=== PATIENT | female | born 1990 | race African-American/Black ===

== ENCOUNTER 2022-02-09 07:54 | Emergency (ER) | payer SELFPAY ==
--- OUTSIDE RECORDS SUMMARY | 2022-02-09 08:01 | XMS REPORT | Continuity of Care Document ---
:1990 Author Organization [facility] t Address [address] [place] [address] Care Team Providers Name Role Phone NONE, NONE Primary Care Physician Unavailable DR STAN AMEZQUITA Attending Clinician Unavailable DR KATRINA DUGAN Attending Clinician Unavailable KAREN, DR LAMBERT Attending Clinician Unavailable DR JAVI YEN Attending Clinician Unavailable ADOLFO, DR SINCLAIR Attending Clinician Unavailable CARL GTZ Attending Clinician Unavailable SEBASTIAN, DR MARY Ham Attending Clinician Unavailable DR ARMAND DUGAN Attending Clinician Unavailable DR KAREN LUNDBERG Attending Clinician Unavailable DR STAN AMEZQUITA Admitting Clinician Unavailable DR KATRINA DUGAN Admitting Clinician Unavailable DR PETRA JONES Admitting Clinician Unavailable DR JAVI YEN Admitting Clinician Unavailable DR DOTTIE MATA Admitting Clinician Unavailable DR MARY CORTES Admitting Clinician Unavailable DR ARMAND DUGAN Admitting Clinician Unavailable DR KAREN LUNDBERG Admitting Clinician Unavailable Payers Payer Name Policy Type Policy Number Effective Date Expiration Date S ource 1000 [id number] 2021 00:00:00 Problems This patient has no known problems. Allergies, Adverse Reactions, Alerts Allergy Allergy Status Severity Reaction(s) Onset Inactive Treating Comm ents Source Name Type Date Date Clinician No Known DA Active Unknown [facility] 07-10 Medical Allergie 00:00: Center s 00 Medications This patient has no known medications. Vital Signs Vital Name Observation Time Observation Value Comments Source Height 2021-06-10 06:12:00 167.64 CM Weight 2021-06-10 06:12:00 72.57 KG Height 2021-01-24 05:20:00 167.64 CM Weight 2021-01-24 05:20:00 81.64 KG Height 2020-11-09 07:16:00 167.64 CM Weight 2020-11-09 07:16:00 78.47 KG Height 2020-08-25 08:15:00 162.56 CM Weight 2020-08-25 08:15:00 81.64 KG Height 2020-08-20 14:08:00 167.64 CM Weight 2020-08-20 14:08:00 85.13 KG Height 2020-07-07 08:30:00 167.64 CM Height 2020-06-03 07:14:00 167.64 CM Weight 2020-06-03 07:14:00 81.64 KG Height 2020-05-28 15:49:00 165.1 CM Weight 2020-05-28 15:49:00 81.64 KG Height 2020-05-25 08:47:00 165.1 CM Weight 2020-05-25 08:47:00 81.64 KG Height 2020-04-07 08:38:00 167.64 CM Weight 2020-04-07 08:38:00 81.64 KG Height 2019-09-28 16:46:00 167.64 CM Weight 2019-09-28 16:46:00 81.64 KG Height 2019-08-16 16:07:00 167.64 CM Weight 2019-08-16 16:07:00 70.3 KG Height 2019-06-10 07:26:00 167.64 CM Weight 2019-06-10 07:26:00 81.64 KG Procedures This patient has no known procedures. Encounters Start End Encounter Admission Attending Care Care Encounter Source Date/Time Date/Time Type Type Clinicians Facility Department ID 2021-10-12 2021-10-12 Emergency Yasmin AMEZQUITA [facility] [id number] [facility] 07:53:00 13:55:00 [facility] 2021-06-10 2021-06-10 Emergency E RITCHIE, [facility] [id number] [facility] 06:06:00 09:15:00 [facility]RINA [facility] 2021-01-24 2021-01-24 Emergency E PETRA JONES [facility] [id number] [facility] 05:09:00 08:39:00 [facility] 2020-11-09 2020-11-09 Emergency E YEN, [facility] [id number] [facility] 07:14:00 09:09:00 [facility] 2020-09-23 2020-09-23 Outpatient FBCOVID FBCOVID [id number] [facility] 00:00:00 00:00:00 [id number] 2020-08-25 Emergency E ALIRIO, [facility] [id number] [facility] 08:04:00 10:50:00 STAN [facility] 2020-08-20 2020-08-20 Emergency E ALIRIO, [facility] [id number] [facility] 13:59:00 17:37:00 [facility] 2020-06-03 2020-06-03 Emergency E CARL GTZ [facility] [id number] [facility] 10:02:00 12:50:00 2020-06-03 2020-06-03 Emergency E RITCHIE [facility] [id number] [facility] 07:14:00 09:15:00 KATRINA [facility] 2020-04-07 2020-04-07 Emergency E DUGAN, ARMAND [facility] [id number] [facility] 08:32:00 11:02:00 [facility] 2020-02-05 2020-02-05 Emergency E RITCHIE [facility] [id number] [facility] 06:58:00 09:16:00 KATRINA [facility] 2019-09-28 2019-09-28 Emergency E ALIRIO [facility] [id number] [facility] 16:29:00 19:51:00 [facility] 2019-08-16 2019-08-16 Emergency E RITCHIE [facility] [id number] [facility] 15:20:00 20:40:00 KATRINA [facility] 2019-06-10 2019-06-10 Emergency E RITCHIE [facility] [id number] [facility] 07:26:00 09:15:00 Replaced by [facility] 2019-01-15 2019-01-15 Emergency E TAMIKA [facility] [id number] [facility] 06:54:00 08:56:00 KAREN [facility] 2018-03-08 2018-03-08 Emergency E ARMAND DUGAN [facility] [id number] [facility] 08:04:00 09:15:00 [facility] 2017-08-09 2017-08-09 Emergency E RITCHIE [facility] [id number] [facility] 05:35:00 07:30:00 Replaced by [facility] 2017-01-27 2017-01-27 Emergency E ALIRIO [facility] [id number] [facility] 15:02:00 16:36:00 [facility] Results Test Description Test Time Test Comments Results Result [facility] e Comments CT ABDOMEN AND 2021-10-26 PELVIS W/O 10:13:53 [facility]AST [facility] : 1990 Sex: F EX AM: CT ABDOMEN PELVIS WITHOUT IV CONTRASTINDICATION: abd pain, back painTECHNIQUE: CT of the abdomen and pelvis was performed with no intravenous contrast. All CT scans are performed using radiation dose reduction technique. Technical factors are evaluated and adjusted to insure appropriate moderation of exposure. Automated dose management technology is applied to adjust the radiation dose to minimize exposure while achieving a diagnostic quality image.FINDINGS:Statem ents: Lack of intravenous contrast diminishes sensitivity for evaluation of abdominopelvic organs and vasculature. Visualized chest: No significant abnormality seen.Hepatobiliary: Liver appears unremarkable. Gallbladder appears unremarkable. No intrahepatic or extrahepatic biliary dilatation is seen. Pancreas: Appears unremarkable. Spleen: Appears unremarkable. Adrenal glands: Appear unremarkable.Kidneys: Appear unremarkable. No hydronephrosis or nephrolithiasis seen.Gastrointestinal : Appendix: Is seen on series 2, image 48. It appears unremarkable.Bowel: No bowel obstruction or ileus seen.Vascular: Aorta does not appear aneurysmal.Lymph nodes: No enlarged lymph nodes seen.Peritoneum: No ascites or free air is seen.Genitourinary: Left ovarian density identified measuring 5.5 x 3.9 cm in size, incompletely characterized. Urinary bladder is mildly distended.Soft tissues:No significant abnormality seen.Bones:No acute or destructive osseous process seen.IMPRESSION:No free air, bowel obstruction, ileus or fluid collection seen. Left ovary and density measuring 5.5-3.9 cm in size, incompletely characterized. Differential considerations would include complex appearing ovarian cyst, cluster of cysts, or neoplasm. Recommend pelvic ultrasound for further evaluation.Please refer to the findings section for additional details. Electronically signed by: Paul Murphy MD 10/12/2021 12:19 PM CDT CBC WITH MORPHOLOGY 2021-10-21 13:46:00 Test Item Value Reference Range Interpretation Comme nts WBC (test code = WBC) 4.4 10\S\3/uL 4.5-11.0 L RBC (test code = RBC) 4.56 10\S\6/uL 4.30-5.70 HGB (test code = HBG) 8.6 g/dL 12.0-15.5 L HCT (test code = HCT) 30.8 % 35.0-44.0 L MCV (test code = MCV) 67.5 fL 81.0-99.0 L MCH (test code = MCH) 18.9 pg 27.0-31.0 L MCHC (test code = MCHC) 27.9 g/dL 32.0-36.0 L RDW (test code = RDW) 19.9 % 11.5-14.5 H PLT (test code = PLT) 218 10\S\3/uL 130-400 MPV (test code = MPV) 9.9 fL 9.4-12.4 NEUTROP # (test code = NE#) 2.4 10\S\3/uL 1.6-8.0 LYMPH # (test code = LY#) 1.4 10\S\3/uL 1.1-3.5 MONOCYTE # (test code = MO#) 0.6 10\S\3/uL 0.0-1.1 EOSINOPH # (test code = EO#) 0.1 10\S\3/uL 0.0-0.7 BASOPHIL # (test code = BA#) 0.0 10\S\3/uL 0.0-0.3 IG # (test code = IG#) 0.01 10\S\3/uL 0.00-0.06 NRBC # (test code = NRBC#) 0.00 10\S\3/uL 0.00-0.01 NEUTROPH % (test code = NE%) 53.9 % 35.0-73.0 LYMPH % (test code = LY%) 31.0 % 20.0-55.0 MONO % (test code = MO%) 13.0 % 2.5-10.0 H EOSINOPH % (test code = EO%) 1.4 % 0.0-5.0 BASOPHIL % (test code = BA%) 0.5 % 0.0-2.0 IG % (test code = IG%) 0.2 % 0.0-0.8 NRBC% (test code = NRBC%) 0.0 % 0.0-0.2 PLT EST (test code = PLTEST) ADEQUATE ADEQUATE PLT MORPH (test code = PLTMOR) NORMAL (1.5-3 um) NORMAL ANISO (test code = ANISO) 1+ NONE A HYPOCHROM (test code = HYPOC) 2+ NONE A TARGET (test code = TARG) 1+ NONE A OVALOCYTES (test code = OVA) 1+ NONE A COMPREHENSIVE METABOLIC [id number] 13:25:00 Test Item Value Reference Range Interpretation Comments GLUCOSE (test code 78 mg/dL 75-100 = 06D) SODIUM (test code 144 mmol/L 136-145 = 01A) POTASSIUM (test 4.0 mmol/L 3.6-5.1 code = 01B) CHLORIDE (test 113 mmol/L 98-107 H code = 04A) CO2 (test code = 22 mmol/L 20-31 02A) ANION GAP (test 13.0 mmol/L code = ANG) BUN (test code = 9 mg/dL 9-23 05D) CREATININE (test 0.6 mg/dL 0.6-1.0 code = 03E) GFR (test code = 121 See_Comment [Automated GFR) mL/min/1.73m\S\2 message] Th e system which generated this result transmit reuben reference range : >=90. The reference range was not used to interpret this result as normal/abnormal . EGFR (test code = eGFR BY EGFR) CKD-EPI CALCULATION IS NOT RECOMMENDED FOR PATIENTS UNDER 18 YEARS OF AGE. BUN/CREA (test 15 12-20 code = BCR) CALCIUM (test code 8.5 mg/dL 8.3-10.6 = 09D) BILI TOTAL (test 0.3 mg/dL 0.2-1.0 code = 11A) PROTEIN (test code 6.8 g/dL 5.7-8.2 = 07D) ALBUMIN (test code 4.3 g/dL 3.2-4.8 = 08D) GLOBULIN (test 2.5 g/dL 1.5-3.8 code = GLB) ALB/GLOB (test 1.7 1.0-2.6 code = AGRR) ALK PHOS (test 47 IU/L 46-116 code = 35A) AST (test code = 24 IU/L See_Comment [Automated 30A) message] The system which generated this result transmit reuben reference range : <=33. The reference range was not used to interpret this result as normal/abnormal . ALT (test code = 11 IU/L 10-49 31A) [id number] 13:17:00 Test Item Value Reference Range Interpretation Comments COLOR (test code = COLU) YELLOW YELLOW CLARITY (test code = CLA) CLEAR CLEAR GLUCOSE UR (test code = UA GLUCOSE) NEGATIVE NEGATIVE BILI UR (test code = BILE) NEGATIVE NEGATIVE KETONES UR (test code = MAXINE) NEGATIVE NEGATIVE SP GRAVITY (test code = SPGR) 1.022 1.005-1.030 PH UR (test code = PH) 7.5 4.5-8.0 PROTEIN UR (test code = PU) NEGATIVE NEGATIVE UROBIL UR (test code = UROQ) 0.2 EU/dL 0.2-1.0 NITRITE UR (test code = NITRITE) NEGATIVE NEGATIVE BLOOD UR (test code = UA BLOOD) NEGATIVE NEGATIVE LEUK ES UR (test code = LEUK) NEGATIVE NEGATIVE URINE [id number] 13:14:00 Test Item Value Reference Range Interpretation Comments PREG UR (test code = PGU) NEGATIVE NEGATIVE U/S NON [id number] 07:48:49 [facility] 1990 Sex: FPELVIS SONOGRA M.TRANSVAGINAL PELVIC SONOGRAMLOCATION CODE: [id number]: Pelvic pain LMP: 06/01/2021. TECHNIQUE: Static sonographic images are provided for interpretation. Transabdominal and transvaginal exams.FINDINGS:The uterus measures 10.3 x 4.3 x 6.4 cm with a 0.7 cm endometrial stripe. A tiny calcified uterine fibroid is noted within the uterine body, adjacent to the endometrium measuring 7 x 7 x 6 mm.No evidence of free pelvic fluid.The right ovary measures 3.6 x 2.4 x 1.5 cm and the left ovary measures 5.1 x2.4 x 3 cm. Follicular cysts are evident at the left ovary. There are dominant simple cyst measures 2 cm. Both ovaries demonstrate normal echogenicity and blood flow. Normal arterial flow is demonstrated to both ovaries.IMPRESSION:1. Tiny subcentimeter calcified uterine fibroid noted.2. Follicular cysts at the left ovary including simple 2 cm dominant cyst. No evidence of torsion.3. No free pelvic fluid.Electronically signed by: Selena Marion MD 06/10/2021 7:48 AM CDT /S [id number] 07:48:49 [facility] : 1990 Sex: FPELVIS SONOGRA M.TRANSVAGINAL PELVIC SONOGRAMLOCATION CODE: [id number]: Pelvic pain LMP: 06/01/2021. TECHNIQUE: Static sonographic images are provided for interpretation. Transabdominal and transvaginal exams.FINDINGS:The uterus measures 10.3 x 4.3 x 6.4 cm with a 0.7 cm endometrial stripe. A tiny calcified uterine fibroid is noted within the uterine body, adjacent to the endometrium measuring 7 x 7 x 6 mm.No evidence of free pelvic fluid.The right ovary measures 3.6 x 2.4 x 1.5 cm and the left ovary measures 5.1 x2.4 x 3 cm. Follicular cysts are evident at the left ovary. There are dominant simple cyst measures 2 cm. Both ovaries demonstrate normal echogenicity and blood flow. Normal arterial flow is demonstrated to both ovaries.IMPRESSION:1. Tiny subcentimeter calcified uterine fibroid noted.2. Follicular cysts at the left ovary including simple 2 cm dominant cyst. No evidence of torsion.3. No free pelvic fluid.Electronically signed by: Selena Marion MD 06/10/2021 7:48 AM CDT WITH [id number] 07:26:00 Test Item Value Reference Range Interpretation Comments WBC (test code = WBC) 5.8 10\S\3/uL 4.5-11.0 RBC (test code = RBC) 4.80 10\S\6/uL 4.30-5.70 HGB (test code = HBG) 9.5 g/dL 12.0-15.5 L HCT (test code = HCT) 32.7 % 35.0-44.0 L MCV (test code = MCV) 68.1 fL 81.0-99.0 L MCH (test code = MCH) 19.8 pg 27.0-31.0 L MCHC (test code = MCHC) 29.1 g/dL 32.0-36.0 L RDW (test code = RDW) 20.7 % 11.5-14.5 H PLT (test code = PLT) 303 10\S\3/uL 130-400 MPV (test code = MPV) 9.9 fL 9.4-12.4 NEUTROP # (test code = NE#) 3.0 10\S\3/uL 1.6-8.0 LYMPH # (test code = LY#) 1.9 10\S\3/uL 1.1-3.5 MONOCYTE # (test code = 0.8 10\S\3/uL 0.0-1.1 MO#) EOSINOPH # (test code = 0.1 10\S\3/uL 0.0-0.7 EO#) BASOPHIL # (test code = 0.0 10\S\3/uL 0.0-0.3 BA#) IG # (test code = IG#) 0.01 10\S\3/uL 0.00-0.06 NRBC # (test code = NRBC#) 0.00 10\S\3/uL 0.00-0.01 NEUTROPH % (test code = 52.0 % 35.0-73.0 NE%) LYMPH % (test code = LY%) 32.2 % 20.0-55.0 MONO % (test code = MO%) 13.9 % 2.5-10.0 H EOSINOPH % (test code = 1.0 % 0.0-5.0 EO%) BASOPHIL % (test code = 0.7 % 0.0-2.0 BA%) IG % (test code = IG%) 0.2 % 0.0-0.8 NRBC% (test code = NRBC%) 0.0 % 0.0-0.2 PLT EST (test code = ADEQUATE ADEQUATE PLTEST) PLT MORPH (test code = NORMAL (1.5-3 um) NORMAL PLTMOR) ANISO (test code = ANISO) 1+ NONE A HYPOCHROM (test code = 2+ NONE A HYPOC) MICROCYTIC (test code = 2+ NONE A MICRO) TARGET (test code = TARG) 2+ NONE A URINALYSIS WITH [id number] 07:14:00 Test Item Value Reference Range Interpretation Comments COLOR (test code = COLU) YELLOW YELLOW CLARITY (test code = CLA) CLEAR CLEAR GLUCOSE UR (test code = UA GLUCOSE) NEGATIVE NEGATIVE BILI UR (test code = BILE) NEGATIVE NEGATIVE KETONES UR (test code = MAXINE) NEGATIVE NEGATIVE SP GRAVITY (test code = SPGR) 1.015 1.005-1.030 PH UR (test code = PH) 7.0 4.5-8.0 PROTEIN UR (test code = PU) TRACE NEGATIVE A UROBIL UR (test code = UROQ) 1.0 EU/dL 0.2-1.0 NITRITE UR (test code = NITRITE) NEGATIVE NEGATIVE BLOOD UR (test code = UA BLOOD) 3+ NEGATIVE A LEUK ES UR (test code = LEUK) 1+ NEGATIVE A WBC UR (test code = UWBC) 4 /HPF 0-5 RBC UR (test code = URBC) 8 /HPF 0-2 H EPITH UR (test code = UEPC) FEW /LPF FEW BACTERIA UR (test code = UBACT) FEW /HPF NONE A CAST UR (test code = CAST) /LPF NONE CRYSTAL UR (test code = CRYU) / LPF NONE MUCUS UR (test code = MUC) / HPF NONE AMORPH UR (test code = SUNIL) / HPF NONE TRICH UR (test code = UTRICH) /HPF NONE YEAST UR (test code = UY) /HPF NONE SPERM UR (test code = USPERM) /HPF NONE BASIC METABOLIC [id number] 07:12:00 Test Item Value Reference Range Interpretation Comments GLUCOSE (test code 83 mg/dL 75-100 = 06D) SODIUM (test code 139 mmol/L 136-145 = 01A) POTASSIUM (test 3.7 mmol/L 3.6-5.1 code = 01B) CHLORIDE (test 107 mmol/L 98-107 code = 04A) CO2 (test code = 27 mmol/L 20-31 02A) ANION GAP (test 8.7 mmol/L code = ANG) BUN (test code = 7 mg/dL 9-23 L 05D) CREATININE (test 0.7 mg/dL 0.6-1.0 code = 03E) GFR (test code = 114 See_Comment [Automated GFR) mL/min/1.73m\S\2 message] Th e system which generated this result transmit reuben reference range : >=90. The reference range was not used to interpret this result as normal/abnormal . GFR 133 See_Comment [Automated [place] (test mL/min/1.73m\S\2 message] The code = GFRAA) system which generated this result transmit reuben reference range : >=90. The reference range was not used to interpret this result as normal/abnormal . EGFR (test code = eGFR BY EGFR) CKD-EPI CALCULATION IS NOT RECOMMENDED FOR PATIENTS UNDER 18 YEARS OF AGE. BUN/CREA (test 10 12-20 L code = BCR) CALCIUM (test code 8.8 mg/dL 8.3-10.6 = 09D) URINE [id number] 06:59:00 Test Item Value Reference Range Interpretation Comments PREG UR (test code = PGU) NEGATIVE NEGATIVE CT ABDOMEN AND PELVIS WITH [id number] 07:11:56 [facility] : 1990 Sex: FEXAMINATION:CT ABDOMEN AND PELVIS WITH CONTRASTCLINICAL INDICATION:Female, 30 years old with Right lower quadrant painTECHNIQUE: Thin section axial post-contrast contiguous images were obtained through the abdomen and pelvis followed by coronal and sagittal multiplanar reformations.One or more of the following dosereduction techniques were used: Automated exposure control, adjustment of the mA and/or kV accordingto patient size, and/or iterative reconstruction. COMPARISON: CT 08/25/2020 reported 3 cm left adnexal cystFINDINGS: Heart size normal. Lung bases clear. Liver, spleen, pancreas and adrenal glands appear unremarkable. Kidneys both function and are normal in size and position with no hydronephrosis, ston es, or apparent soft tissue mass. The appendix appears normal. No dilated bowel loops. No free air or fluid is seen in the abdomen. No periaortic adenopathy or aneurysm. Anteverted uterus. 2.5 cm waterdensity right lower quadrant adnexal cyst. 2.9 cm cyst is identified on the left, appearing essentially unchanged. No pelvic or inguinal adenopathy is seen. The bones appear unremarkable.IMPRESSION:1. New right adnexal cyst.2. Left adnexal cyst appears essentially unchanged.3. No urolithiasis.4. Normal appendix.Electronically signed by: Be Long MD 01/24/2021 7:11 AM [employer] WITH [id number] 06:44:00 Test Item Value Reference Range Interpretation Comments WBC (test code = WBC) 4.1 10\S\3/uL 4.5-11.0 L RBC (test code = RBC) 4.95 10\S\6/uL 4.30-5.70 HGB (test code = HBG) 9.5 g/dL 12.0-15.5 L HCT (test code = HCT) 33.2 % 35.0-44.0 L MCV (test code = MCV) 67.1 fL 81.0-99.0 L MCH (test code = MCH) 19.2 pg 27.0-31.0 L MCHC (test code = MCHC) 28.6 g/dL 32.0-36.0 L RDW (test code = RDW) 20.3 % 11.5-14.5 H PLT (test code = PLT) 273 10\S\3/uL 130-400 MPV (test code = MPV) 9.5 fL 9.4-12.4 NEUTROP # (test code = NE#) 1.8 10\S\3/uL 1.6-8.0 LYMPH # (test code = LY#) 1.6 10\S\3/uL 1.1-3.5 MONOCYTE # (test code = 0.6 10\S\3/uL 0.0-1.1 MO#) EOSINOPH # (test code = 0.1 10\S\3/uL 0.0-0.7 EO#) BASOPHIL # (test code = 0.0 10\S\3/uL 0.0-0.3 BA#) IG # (test code = IG#) 0.01 10\S\3/uL 0.00-0.06 NRBC # (test code = NRBC#) 0.00 10\S\3/uL 0.00-0.01 NEUTROPH % (test code = 45.1 % 35.0-73.0 NE%) LYMPH % (test code = LY%) 38.0 % 20.0-55.0 MONO % (test code = MO%) 13.5 % 2.5-10.0 H EOSINOPH % (test code = 2.2 % 0.0-5.0 EO%) BASOPHIL % (test code = 1.0 % 0.0-2.0 BA%) IG % (test code = IG%) 0.2 % 0.0-0.8 NRBC% (test code = NRBC%) 0.0 % 0.0-0.2 PLT EST (test code = ADEQUATE ADEQUATE PLTEST) PLT MORPH (test code = NORMAL (1.5-3 um) NORMAL PLTMOR) ANISO (test code = ANISO) 2+ NONE A POIK (test code = POIK) 2+ NONE A HYPOCHROM (test code = 2+ NONE A HYPOC) MICROCYTIC (test code = 2+ NONE A MICRO) POLYCHROM (test code = 1+ NONE A POLY) TARGET (test code = TARG) 1+ NONE A OVALOCYTES (test code = 1+ NONE A OVA) TEAR DROP (test code = TD) 1+ NONE A COMPREHENSIVE METABOLIC [id number] 06:16:00 Test Item Value Reference Range Interpretation Comments GLUCOSE (test code 74 mg/dL 75-100 L = 06D) SODIUM (test code 144 mmol/L 136-145 = 01A) POTASSIUM (test 3.8 mmol/L 3.6-5.1 code = 01B) CHLORIDE (test 112 mmol/L 98-107 H code = 04A) CO2 (test code = 23 mmol/L 20-31 02A) ANION GAP (test 12.8 mmol/L code = ANG) BUN (test code = 8 mg/dL 9-23 L 05D) CREATININE (test 0.7 mg/dL 0.6-1.0 code = 03E) GFR (test code = 114 See_Comment [Automated GFR) mL/min/1.73m\S\2 message] Th e system which generated this result transmit reuben reference range : >=90. The reference range was not used to interpret this result as normal/abnormal . GFR 133 See_Comment [Automated [place] (test mL/min/1.73m\S\2 message] The code = GFRAA) system which generated this result transmit reuben reference range : >=90. The reference range was not used to interpret this result as normal/abnormal . EGFR (test code = eGFR BY EGFR) CKD-EPI CALCULATION IS NOT RECOMMENDED FOR PATIENTS UNDER 18 YEARS OF AGE. BUN/CREA (test 11 12-20 L code = BCR) CALCIUM (test code 9.0 mg/dL 8.3-10.6 = 09D) BILI TOTAL (test 0.3 mg/dL 0.2-1.0 code = 11A) PROTEIN (test code 7.1 g/dL 5.7-8.2 = 07D) ALBUMIN (test code 4.5 g/dL 3.2-4.8 = 08D) GLOBULIN (test 2.6 g/dL 1.5-3.8 code = GLB) ALB/GLOB (test 1.7 1.0-2.6 code = AGRR) ALK PHOS (test 62 IU/L 46-116 code = 35A) AST (test code = 25 IU/L See_Comment [Automated 30A) message] The system which generated this result transmit reuben reference range : <=33. The reference range was not used to interpret this result as normal/abnormal . ALT (test code = 12 IU/L 10-49 31A) SERUM [id number] 06:14:00 Test Item Value Reference Range Interpretation Comments PREG SRM (test code = PGS) NEGATIVE NEGATIVE URINALYSIS WITH [id number] 05:58:00 Test Item Value Reference Range Interpretation Comments COLOR (test code = COLU) YELLOW YELLOW CLARITY (test code = CLA) CLOUDY CLEAR A GLUCOSE UR (test code = UA NEGATIVE NEGATIVE GLUCOSE) BILI UR (test code = BILE) NEGATIVE NEGATIVE KETONES UR (test code = MAXINE) 1+ NEGATIVE A SP GRAVITY (test code = SPGR) 1.027 1.005-1.030 PH UR (test code = PH) 5.5 4.5-8.0 PROTEIN UR (test code = PU) 1+ NEGATIVE A UROBIL UR (test code = UROQ) 1.0 EU/dL 0.2-1.0 NITRITE UR (test code = NEGATIVE NEGATIVE NITRITE) BLOOD UR (test code = UA BLOOD) NEGATIVE NEGATIVE LEUK ES UR (test code = LEUK) 1+ NEGATIVE A WBC UR (test code = UWBC) 6 /HPF 0-5 H RBC UR (test code = URBC) 2 /HPF 0-2 EPITH UR (test code = UEPC) MODERATE /LPF FEW A BACTERIA UR (test code = UBACT) MODERATE /HPF NONE A CAST UR (test code = CAST) /LPF NONE CRYSTAL UR (test code = CRYU) / LPF NONE MUCUS UR (test code = MUC) / HPF NONE AMORPH UR (test code = SUNIL) FEW / HPF NONE A TRICH UR (test code = UTRICH) /HPF NONE YEAST UR (test code = UY) /HPF NONE SPERM UR (test code = USPERM) /HPF NONE URINALYSIS WITH [id number] 08:29:00 Test Item Value Reference Range Interpretation Comments COLOR (test code = COLU) DK YELLOW YELLOW A CLARITY (test code = CLA) CLEAR CLEAR GLUCOSE UR (test code = UA NEGATIVE NEGATIVE GLUCOSE) BILI UR (test code = BILE) NEGATIVE NEGATIVE KETONES UR (test code = MAXINE) NEGATIVE NEGATIVE SP GRAVITY (test code = SPGR) 1.028 1.005-1.030 PH UR (test code = PH) 6.0 4.5-8.0 PROTEIN UR (test code = PU) NEGATIVE NEGATIVE UROBIL UR (test code = UROQ) 1.0 EU/dL 0.2-1.0 NITRITE UR (test code = NEGATIVE NEGATIVE NITRITE) BLOOD UR (test code = UA NEGATIVE NEGATIVE BLOOD) LEUK ES UR (test code = LEUK) 1+ NEGATIVE A WBC UR (test code = UWBC) 4 /HPF 0-5 RBC UR (test code = URBC) 0 /HPF 0-2 EPITH UR (test code = UEPC) MODERATE /LPF FEW A BACTERIA UR (test code = MODERATE /HPF NONE A UBACT) CAST UR (test code = CAST) /LPF NONE CRYSTAL UR (test code = CRYU) / LPF NONE MUCUS UR (test code = MUC) MODERATE / HPF NONE A AMORPH UR (test code = SUNIL) / HPF NONE TRICH UR (test code = UTRICH) /HPF NONE YEAST UR (test code = UY) /HPF NONE SPERM UR (test code = USPERM) /HPF NONE URINE [id number] 08:28:00 Test Item Value Reference Range Interpretation Comments PREG UR (test code = PGU) NEGATIVE NEGATIVE CT CERVICAL SPINE W/O [id number] 08:15:12 [facility] : 1990 Sex: FCT CERVICAL SPINE WITHOUT CONTRAST; SAGITTAL AND CORONAL REFORMATTED VIEWS.HISTORY: Accidental fall; Cervical radiculopathyCOMPARISON :None.TECHNIQUE: Axial CT images of the cervical spine were obtained with coronaland sagittal reformatted views. Automated exposure control, iterative reconstruction technique, and/or adjustment of mA and/or kV according to patient's size was utilized for radiation dose reduction. IV CONTRAST: None.FINDINGS:The cervical alignment is satisfactory without evidence of a fracture or subluxation. No prevertebral soft tissue swelling.At C3-C4, right uncovertebral hypertrophy causes mild to moderate right neuroforaminal narrowing.IMPRESSION:No cervical spine fracture or subluxation.Mild to moderate right neuroforaminal narrowing at C3- C4.Electronically signed by: Herlinda Biswas MD11/09/2020 8:15 AM CDT ABDOMEN AND PELVIS WITH [id number] 10:21:05 [facility] : 1990 Sex: FEXAMINATION: CT ABDOMEN PELVIS WITH IV CONTRAST.HISTORY: Abdominal pain.COMPARISON: CT abdomen 05/25/20. Pelvic ultrasound 05/28/20.TECHNIQUE: CT imaging was performed of abdomen and pelvis after intravenous administration of 100 cc of Isovue-300. Oral contrast material was not administered. One or more the followingdose reduction techniques were used: Automated exposure control, adjustment of mA and/or kV according to patient size, and use of iterative reconstruction technique.FINDINGS: Examination is limited dueto lack of oral contrast.Visualized lung bases demonstrates 5 mm left lower lobe nodule, stable since 2017.Liver, gallbladder, spleen, pancreas, adrenals and kidneys appear unremarkable. No hydronephrosis. Underdistended urinary bladder.The bowel loops appear normal in course and caliber. No bowel obstruction. Unremarkable appendix.No abdominal or pelvic bulky lymphadenopathy.No pneumoperitoneum or fr ee fluid. Uterus appears unremarkable by CT technique. Prominent cervix. 3 cm left ovarian cyst, interval decrease in size from prior exam.Visualized osseous structures appear unremarkable.IMPRESSION:Prominent cervix, correlate with direct visualization.Interval decrease in size of previously described complex left ovarian cyst currently measuring 3 cm.Electronically signed by: Cathie Soria MD 08/25/2020 10:21 AM CDT WITH MORPHOLOGY 2020-08-25 09:52:00 Test Item Value Reference Range Interpretation Comments WBC (test code = WBC) 4.9 10\S\3/uL 4.5-11.0 RBC (test code = RBC) 4.77 10\S\6/uL 4.30-5.70 HGB (test code = HBG) 9.8 g/dL 12.0-15.5 L HCT (test code = HCT) 33.1 % 35.0-44.0 L MCV (test code = MCV) 69.4 fL 81.0-99.0 L MCH (test code = MCH) 20.5 pg 27.0-31.0 L MCHC (test code = MCHC) 29.6 g/dL 32.0-36.0 L RDW (test code = RDW) 19.1 % 11.5-14.5 H PLT (test code = PLT) 230 10\S\3/uL 130-400 MPV (test code = MPV) 10.5 fL 9.4-12.4 NEUTROP # (test code = NE#) 3.3 10\S\3/uL 1.6-8.0 LYMPH # (test code = LY#) 1.0 10\S\3/uL 1.1-3.5 L MONOCYTE # (test code = 0.5 10\S\3/uL 0.0-1.1 MO#) EOSINOPH # (test code = 0.0 10\S\3/uL 0.0-0.7 EO#) BASOPHIL # (test code = 0.0 10\S\3/uL 0.0-0.3 BA#) IG # (test code = IG#) 0.01 10\S\3/uL 0.00-0.06 NRBC # (test code = NRBC#) 0.00 10\S\3/uL 0.00-0.01 NEUTROPH % (test code = 67.0 % 35.0-73.0 NE%) LYMPH % (test code = LY%) 20.9 % 20.0-55.0 MONO % (test code = MO%) 10.7 % 2.5-10.0 H EOSINOPH % (test code = 0.8 % 0.0-5.0 EO%) BASOPHIL % (test code = 0.4 % 0.0-2.0 BA%) IG % (test code = IG%) 0.2 % 0.0-0.8 NRBC% (test code = NRBC%) 0.0 % 0.0-0.2 PLT EST (test code = ADEQUATE ADEQUATE PLTEST) PLT MORPH (test code = NORMAL (1.5-3 um) NORMAL PLTMOR) ANISO (test code = ANISO) 1+ NONE A HYPOCHROM (test code = 2+ NONE A HYPOC) POLYCHROM (test code = 1+ NONE A POLY) TARGET (test code = TARG) 1+ NONE A COMPREHENSIVE METABOLIC [id number] 09:40:00 Test Item Value Reference Range Interpretation Comments GLUCOSE (test code 82 mg/dL 75-100 = 06D) SODIUM (test code 142 mmol/L 136-145 = 01A) POTASSIUM (test 3.7 mmol/L 3.6-5.1 code = 01B) CHLORIDE (test 111 mmol/L 98-107 H code = 04A) CO2 (test code = 25 mmol/L 22-32 02A) ANION GAP (test 9.7 mmol/L code = ANG) BUN (test code = 7 mg/dL 7-18 05D) CREATININE (test 0.6 mg/dL 0.4-1.1 code = 03E) GFR (test code = 121 See_Comment [Automated GFR) mL/min/1.73m\S\2 message] Th e system which generated this result transmit reuben reference range : >=90. The reference range was not used to interpret this result as normal/abnormal . GFR 140 See_Comment [Automated [place] (test mL/min/1.73m\S\2 message] The code = GFRAA) system which generated this result transmit reuben reference range : >=90. The reference range was not used to interpret this result as normal/abnormal . EGFR (test code = eGFR BY EGFR) CKD-EPI CALCULATION IS NOT RECOMMENDED FOR PATIENTS UNDER 18 YEARS OF AGE. BUN/CREA (test 12 12-20 code = BCR) CALCIUM (test code 8.9 mg/dL 8.3-9.5 = 09D) BILI TOTAL (test 0.4 mg/dL 0.2-1.0 code = 11A) PROTEIN (test code 7.3 g/dL 6.4-8.2 = 07D) ALBUMIN (test code 3.7 g/dL 3.5-4.8 = 08D) GLOBULIN (test 3.6 g/dL 1.5-3.8 code = GLB) ALB/GLOB (test 1.0 1.0-2.6 code = AGRR) ALK PHOS (test 47 IU/L 42-121 code = 35A) AST (test code = 12 IU/L See_Comment [Automated 30A) message] The system which generated this result transmit reuben reference range : <=42. The reference range was not used to interpret this result as normal/abnormal . ALT (test code = 17 IU/L See_Comment [Automated 31A) message] The system which generated this result transmit reuben reference range : <=78. The reference range was not used to interpret this result as normal/abnormal . AMYLASE AND [id number] 09:40:00 Test Item Value Reference Range Interpretation Comments AMYLASE (test code = 10A) 69 U/L 28-100 LIPASE (test code = 60A) 189 IU/L 73-393 SERUM [id number] 09:29:00 Test Item Value Reference Range Interpretation Comments PREG SRM (test code = PGS) NEGATIVE NEGATIVE [id number] 09:28:00 Test Item Value Reference Range Interpretation Comments COLOR (test code = COLU) YELLOW YELLOW CLARITY (test code = CLA) CLEAR CLEAR GLUCOSE UR (test code = UA GLUCOSE) NEGATIVE NEGATIVE BILI UR (test code = BILE) NEGATIVE NEGATIVE KETONES UR (test code = MAXINE) 2+ NEGATIVE A SP GRAVITY (test code = SPGR) 1.023 1.005-1.030 PH UR (test code = PH) 6.0 4.5-8.0 PROTEIN UR (test code = PU) NEGATIVE NEGATIVE UROBIL UR (test code = UROQ) 0.2 EU/dL 0.2-1.0 NITRITE UR (test code = NITRITE) NEGATIVE NEGATIVE BLOOD UR (test code = UA BLOOD) NEGATIVE NEGATIVE LEUK ES UR (test code = LEUK) NEGATIVE NEGATIVE SARS-CoV (RAPID ANTIGEN)2020-08-20 17:17:00 Test Item Value Reference Range Interpretation Comments SARS-CoV (ANTIGEN) NEGATIVE NEGATIVE (test code = COVAG) COVID AG (test This test has been code = COVAGC) marketed under the FDA Emergency Use Authorization (EUA) to meet challenges of the COVID-19 pandemic. The validation standards normally enforced by the FDA and the [employer] of the [place] (CAP) are more stringent than those required for this test. Therefore, the result should be interpreted with caution and close attention to other clinical and epidemiological data XR ABDOMEN AP 1 VIEW [id number] 17:02:45 [facility] : 1990 Sex: FExam: KUB.Location: H 12History: Left lower quadrant painFindings:A supine view of the abdomen demonstrates an unremarkable bowel gas pattern. The large and small intestine are normal in caliber. No organomegaly, abnormal masses or calcifications are seen. No pneumatosis or free air is present.Impression:Unremarkable exam.Electronically signed by: Gilberto Hutson MD 08/20/2020 5:02 PM CDT CHEST 2 [id number] 16:58:48 [facility] : 1990 Sex: FEXAMINATION: XR CHEST 2 VIEWS.HISTORY: Chest pain.COMPARISON: Chest x-ray 07/07/20.FINDINGS:Cardiac silhouette/Mediastinal contour: Within normal limits.Lungs: No focal consolidation. No pleural effusion.Osseous Structures: No acute osseous abnormalities.IMPRESSION: No focal consolidation.Electronically signed by: Cathie Soria MD 08/20/2020 4:58 PM CDT BRAIN NATRIURETIC [id number] 16:03:00 Test Item Value Reference Range Interpretation Comments proBNP (test code = PBNP) 28 pg/mL 0-125 TROPONIN [id number] 15:56:00 Test Item Value Reference Range Interpretation Comments TROPONIN I (test code = A84) <0.015 ng/mL 0.000-0.045 COMPREHENSIVE METABOLIC [id number] 15:56:00 Test Item Value Reference Range Interpretation Comments GLUCOSE (test code 70 mg/dL 75-100 L = 06D) SODIUM (test code 140 mmol/L 136-145 = 01A) POTASSIUM (test 3.8 mmol/L 3.6-5.1 code = 01B) CHLORIDE (test 110 mmol/L 98-107 H code = 04A) CO2 (test code = 25 mmol/L 22-32 02A) ANION GAP (test 8.8 mmol/L code = ANG) BUN (test code = 8 mg/dL 7-18 05D) CREATININE (test 0.6 mg/dL 0.4-1.1 code = 03E) GFR (test code = 118 See_Comment [Automated GFR) mL/min/1.73m\S\2 message] e system which generated this result transmit reuben reference range : >=90. The reference range was not used to interpret this result as normal/abnormal . GFR 137 See_Comment [Automated [place] (test mL/min/1.73m\S\2 message] The code = GFRAA) system which generated this result transmit reuben reference range : >=90. The reference range was not used to interpret this result as normal/abnormal . EGFR (test code = eGFR BY EGFR) CKD-EPI CALCULATION IS NOT RECOMMENDED FOR PATIENTS UNDER 18 YEARS OF AGE. BUN/CREA (test 12 20 code = BCR) CALCIUM (test code 8.8 mg/dL 8.3-9.5 = 09D) BILI TOTAL (test 0.3 mg/dL 0.2-1.0 code = 11A) PROTEIN (test code 7.2 g/dL 6.4-8.2 = 07D) ALBUMIN (test code 3.7 g/dL 3.5-4.8 = 08D) GLOBULIN (test 3.5 g/dL 1.5-3.8 code = GLB) ALB/GLOB (test 1.1 1.0-2.6 code = AGRR) ALK PHOS (test 44 IU/L 42-121 code = 35A) AST (test code = 17 IU/L See_Comment [Automated 30A) message] The system which generated this result transmit reuben reference range : <=42. The reference range was not used to interpret this result as normal/abnormal . ALT (test code = 18 IU/L See_Comment [Automated 31A) message] The system which generated this result transmit reuben reference range : <=78. The reference range was not used to interpret this result as normal/abnormal . [id number] 15:52:00 Test Item Value Reference Range Interpretation Comments COLOR (test code = COLU) YELLOW YELLOW CLARITY (test code = CLA) CLEAR CLEAR GLUCOSE UR (test code = UA GLUCOSE) NEGATIVE NEGATIVE BILI UR (test code = BILE) NEGATIVE NEGATIVE KETONES UR (test code = MAXINE) NEGATIVE NEGATIVE SP GRAVITY (test code = SPGR) 1.024 1.005-1.030 PH UR (test code = PH) 6.0 4.5-8.0 PROTEIN UR (test code = PU) NEGATIVE NEGATIVE UROBIL UR (test code = UROQ) 0.2 EU/dL 0.2-1.0 NITRITE UR (test code = NITRITE) NEGATIVE NEGATIVE BLOOD UR (test code = UA BLOOD) NEGATIVE NEGATIVE LEUK ES UR (test code = LEUK) NEGATIVE NEGATIVE [id number] 15:50:00 Test Item Value Reference Range Interpretation Comments MAGNESIUM (test code = 48A) 2.2 mg/dL 1.8-2.4 SERUM [id number] 15:47:00 Test Item Value Reference Range Interpretation Comments PREG SRM (test code = PGS) NEGATIVE NEGATIVE PRO TIME AND [id number] 15:46:00 Test Item Value Reference Range Interpretation Comments PT (test code = 11.3 s 9.8-13.6 TT) INR (test code = 1.0 INR) INRH (test code = SUGGESTED THERAPEUTIC INRH) RANGE FOR INR: 2.5 - 3.5 For Patients with Prosthetic Valves or Patients with recurrent Thromboembolic Events 2.0 - 3.0 For Most Other Applications PTT (test code = 33.1 s 20.2-38.0 PTT) PTTH (test code = To monitor the PTTH) effectiveness of heparin, we offer the Anti-Xa (Heparin Assay). It can be used for either unfractionated or LMW Heparin. Order Code is ANTI-XA CBC (INCLUDES AUTOMATED DIFFERENTIAL)2020-08-20 15:40:00 Test Item Value Reference Range Interpretation Comments WBC (test code = WBC) 5.3 10\S\3/uL 4.5-11.0 RBC (test code = RBC) 4.59 10\S\6/uL 4.30-5.70 HGB (test code = HBG) 9.3 g/dL 12.0-15.5 L HCT (test code = HCT) 31.7 % 35.0-44.0 L MCV (test code = MCV) 69.1 fL 81.0-99.0 L MCH (test code = MCH) 20.3 pg 27.0-31.0 L MCHC (test code = MCHC) 29.3 g/dL 32.0-36.0 L RDW (test code = RDW) 18.6 % 11.5-14.5 H PLT (test code = PLT) 200 10\S\3/uL 130-400 MPV (test code = MPV) 10.2 fL 9.4-12.4 NEUTROP # (test code = NE#) 2.5 10\S\3/uL 1.6-8.0 LYMPH # (test code = LY#) 2.2 10\S\3/uL 1.1-3.5 MONOCYTE # (test code = MO#) 0.5 10\S\3/uL 0.0-1.1 EOSINOPH # (test code = EO#) 0.1 10\S\3/uL 0.0-0.7 BASOPHIL # (test code = BA#) 0.0 10\S\3/uL 0.0-0.3 IG # (test code = IG#) 0.01 10\S\3/uL 0.00-0.06 NRBC # (test code = NRBC#) 0.00 10\S\3/uL 0.00-0.01 NEUTROPH % (test code = NE%) 47.1 % 35.0-73.0 LYMPH % (test code = LY%) 40.9 % 20.0-55.0 MONO % (test code = MO%) 9.7 % 2.5-10.0 EOSINOPH % (test code = EO%) 1.3 % 0.0-5.0 BASOPHIL % (test code = BA%) 0.8 % 0.0-2.0 IG % (test code = IG%) 0.2 % 0.0-0.8 NRBC% (test code = NRBC%) 0.0 % 0.0-0.2 MANDIFF (test code = MDIFF) NO DIRECT STREP GROUP [id number] 13:01:00 Test Item Value Reference Range Interpretation Comments Culture Observations NO BETA HEMOLYTIC (test code = COB1) STREPTOCOCCUS ISOLATED Direct Exam (test code NEGATIVE FOR STREP A = DE1) ANTIGEN XR CHEST 2 [id number] 10:17:05 [facility] : 1990 Sex: FEXAM: CHEST 2 VIEWSINDICATION: CoughCOMPARISON: September 28, 2019TECHNIQUE: PA and lateral views of the chest.FINDINGS: The cardiomediastinal silhouette is normal. The lungs are clear bilaterally. No pneumothorax or pleural effusion is identified. The osseous structures are unremarkable.IMPRESSION: No acute cardiopulmonary process.LOCATION: N10Temnpfsjzdyptq signed by: Mariela Ray MD 07/07/2020 10:17 AM CDT -QdL (RAPID ANTIGEN)2020-07-07 09:26:00 Test Item Value Reference Range Interpretation Comments SARS-CoV (ANTIGEN) NEGATIVE NEGATIVE (test code = COVAG) COVID AG (test This test has been code = COVAGC) marketed under the FDA Emergency Use Authorization (EUA) to meet challenges of the COVID-19 pandemic. The validation standards normally enforced by the FDA and the [employer] the [place] [employer] (CAP) are more stringent than those required for this test. Therefore, the result should be interpreted with caution and close attention to other clinical and epidemiological data DIRECT INFLUENZA A AND B [id number] 09:23:00 Test Item Value Reference Range Interpretation Comments Direct Exam (test PRESUMPTIVE NEGATIVE FOR code = DE1) THE PRESENCE OF INFLUENZA ANTIGEN CBC WITH [id number] 08:46:00 Test Item Value Reference Range Interpretation Comments WBC (test code = WBC) 4.1 10\S\3/uL 4.5-11.0 L RBC (test code = RBC) 5.07 10\S\6/uL 4.30-5.70 HGB (test code = HBG) 10.1 g/dL 12.0-15.5 L HCT (test code = HCT) 35.5 % 35.0-44.0 MCV (test code = MCV) 70.0 fL 81.0-99.0 L MCH (test code = MCH) 19.9 pg 27.0-31.0 L MCHC (test code = MCHC) 28.5 g/dL 32.0-36.0 L RDW (test code = RDW) 24.7 % 11.5-14.5 H PLT (test code = PLT) 228 10\S\3/uL 130-400 MPV (test code = MPV) 10.1 fL 9.4-12.4 NEUTROP # (test code = NE#) 2.3 10\S\3/uL 1.6-8.0 LYMPH # (test code = LY#) 1.3 10\S\3/uL 1.1-3.5 MONOCYTE # (test code = 0.4 10\S\3/uL 0.0-1.1 MO#) EOSINOPH # (test code = 0.1 10\S\3/uL 0.0-0.7 EO#) BASOPHIL # (test code = 0.0 10\S\3/uL 0.0-0.3 BA#) IG # (test code = IG#) 0.00 10\S\3/uL 0.00-0.06 NRBC # (test code = NRBC#) 0.00 10\S\3/uL 0.00-0.01 NEUTROPH % (test code = 55.1 % 35.0-73.0 NE%) LYMPH % (test code = LY%) 32.1 % 20.0-55.0 MONO % (test code = MO%) 9.9 % 2.5-10.0 EOSINOPH % (test code = 2.2 % 0.0-5.0 EO%) BASOPHIL % (test code = 0.7 % 0.0-2.0 BA%) IG % (test code = IG%) 0.0 % 0.0-0.8 NRBC% (test code = NRBC%) 0.0 % 0.0-0.2 PLT EST (test code = ADEQUATE ADEQUATE PLTEST) PLT MORPH (test code = NORMAL (1.5-3 um) NORMAL PLTMOR) ANISO (test code = ANISO) 1+ NONE A HYPOCHROM (test code = 2+ NONE A HYPOC) URINALYSIS WITH [id number] 08:11:00 Test Item Value Reference Range Interpretation Comments COLOR (test code = COLU) Yellow YELLOW CLARITY (test code = CLA) SLT HAZY CLEAR A GLUCOSE UR (test code = UA Negative NEGATIVE GLUCOSE) BILI UR (test code = BILE) Negative NEGATIVE KETONES UR (test code = MAXINE) Negative NEGATIVE SP GRAVITY (test code = SPGR) >=1.030 1.005-1.030 PH UR (test code = PH) 6.5 4.5-8.0 PROTEIN UR (test code = PU) 2+ NEGATIVE A UROBIL UR (test code = UROQ) 0.2 EU/dL 0.2-1.0 NITRITE UR (test code = Negative NEGATIVE NITRITE) BLOOD UR (test code = UA BLOOD) 3+ NEGATIVE A LEUK ES UR (test code = LEUK) Negative NEGATIVE WBC UR (test code = UWBC) 1 /HPF 0-5 RBC UR (test code = URBC) 10 /HPF 0-2 H EPITH UR (test code = UEPC) FEW /LPF FEW BACTERIA UR (test code = UBACT) MODERATE /HPF NONE A CAST UR (test code = CAST) /LPF NONE CRYSTAL UR (test code = CRYU) / LPF NONE MUCUS UR (test code = MUC) FEW / HPF NONE A AMORPH UR (test code = SUNIL) / HPF NONE TRICH UR (test code = UTRICH) /HPF NONE YEAST UR (test code = UY) /HPF NONE SPERM UR (test code = USPERM) /HPF NONE URINE [id number] 08:02:00 Test Item Value Reference Range Interpretation Comments PREG UR (test code = PGU) NEGATIVE NEGATIVE URINE [id number] 10:24:00 Test Item Value Reference Range Interpretation Comments Culture Observations THREE OR MORE SPECIES (test code = COB1) OF BACTERIA ISOLATED. PROBABLE CONTAMINATION. Culture Observations IDENTIFICATION AND (test code = COB17) SUSCEPTIBILITY NOT INDICATED. RECOLLECTION RECOMMENDED [id number] 19:11:00 Test Item Value Reference Range Interpretation Comments COLOR (test code = COLU) Yellow YELLOW CLARITY (test code = CLA) Clear CLEAR GLUCOSE UR (test code = UA GLUCOSE) Negative NEGATIVE BILI UR (test code = BILE) Negative NEGATIVE KETONES UR (test code = MAXINE) 1+ NEGATIVE A SP GRAVITY (test code = SPGR) >=1.030 1.005-1.030 PH UR (test code = PH) 5.5 4.5-8.0 PROTEIN UR (test code = PU) Negative NEGATIVE UROBIL UR (test code = UROQ) 0.2 EU/dL 0.2-1.0 NITRITE UR (test code = NITRITE) Negative NEGATIVE BLOOD UR (test code = UA BLOOD) Negative NEGATIVE LEUK ES UR (test code = LEUK) Negative NEGATIVE URINE [id number] 18:55:00 Test Item Value Reference Range Interpretation Comments PREG UR (test code = PGU) NEGATIVE NEGATIVE U/S NON [id number] 17:53:02 [facility] : 1990 Sex: FDICTATION LOCATION: [id number]: Female, 29 years of age with follow-up of left ovarian cystEXAM: TRANSABDOMINAL AND TRANSVAGINAL PELVIC ULTRASOUNDSCOMPARISON: Previous pelvic ultrasound and CT scan of abdomen and pelvis without contrast performed 05/25/2020TECHNIQUE: Transabdominal and endovaginal scans with color and pulse wave Doppler interrogation were performed.FINDINGS: UTERUS: Normal size measuring 8.7 x 4.7 x 6.3 cm. Myometrium is heterogeneous with at least 2 fibroids, the largest hypoechoic in the left anterior fundus measuring 2.6 cm diameter and another small 0.3 cm calcified fibroid in the submucosal region of the midline anterior fundus.Endometrium: 11.0 mm AP dimension. Endometrium is normal thickness and echogenicity.RIGHT OVARY: 2.3 x 1.8 x 1.4 cmNo discrete right ovarian mass.Ovarian blood flowdocumented with Doppler.LEFT OVARY: 5.6 x 5.3 x 4.8 cmSince prior study there has probably been no significant change in the large complex septated cyst in left ovary measuring 5.2 x 5.6 x 4.8 cm.Ovarian blood flow documented with Doppler.OTHER: No other complex adnexal mass. No free fluid in cul-de-sac.IMPRESSION: 1. No significant change in the 5.2 x 5.6 x 4.8 cm complex septated cystic mass in left ovary. Gynecologic consultation recommended.2. There are at least 2 uterine fibroids measuring up to 2.6 cm diameter, also stable.Electronically signed by: Rosemary Reid MD 05/28/2020 5:53 PM CDT /S [id number] 17:53:02 [facility] : 1990 Sex: FDICTATION LOCATION: [id number]: Female, 29 years of age with follow-up of left ovarian cystEXAM: TRANSABDOMINAL AND TRANSVAGINAL PELVIC ULTRASOUNDSCOMPARISON: Previous pelvic ultrasound and CT scan of abdomen and pelvis without contrast performed 05/25/2020TECHNIQUE: Transabdominal and endovaginal scans with color and pulse wave Doppler interrogation were performed.FINDINGS: UTERUS: Normal size measuring 8.7 x 4.7 x 6.3 cm. Myometrium is heterogeneous with at least 2 fibroids, the largest hypoechoic in the left anterior fundus measuring 2.6 cm diameter and another small 0.3 cm calcified fibroid in the submucosal region of the midline anterior fundus.Endometrium: 11.0 mm AP dimension. Endometrium is normal thickness and echogenicity.RIGHT OVARY: 2.3 x 1.8 x 1.4 cmNo discrete right ovarian mass.Ovarian blood flowdocumented with Doppler.LEFT OVARY: 5.6 x 5.3 x 4.8 cmSince prior study there has probably been no significant change in the large complex septated cyst in left ovary measuring 5.2 x 5.6 x 4.8 cm.Ovarian blood flow documented with Doppler.OTHER: No other complex adnexal mass. No free fluid in cul-de-sac.IMPRESSION: 1. No significant change in the 5.2 x 5.6 x 4.8 cm complex septated cystic mass in left ovary. Gynecologic consultation recommended.2. There are at least 2 uterine fibroids measuring up to 2.6 cm diameter, also stable.Electronically signed by: Rosemary Reid MD 05/28/2020 5:53 PM CDT WITH [id number] 17:21:00 Test Item Value Reference Range Interpretation Comments WBC (test code = WBC) 6.7 10\S\3/uL 4.5-11.0 RBC (test code = RBC) 5.02 10\S\6/uL 4.30-5.70 HGB (test code = HBG) 9.9 g/dL 12.0-15.5 L HCT (test code = HCT) 34.2 % 35.0-44.0 L MCV (test code = MCV) 68.1 fL 81.0-99.0 L MCH (test code = MCH) 19.7 pg 27.0-31.0 L MCHC (test code = MCHC) 28.9 g/dL 32.0-36.0 L RDW (test code = RDW) 24.4 % 11.5-14.5 H PLT (test code = PLT) 201 10\S\3/uL 130-400 MPV (test code = MPV) 0.0 fL 9.4-12.4 L NEUTROP # (test code = NE#) 4.0 10\S\3/uL 1.6-8.0 LYMPH # (test code = LY#) 2.0 10\S\3/uL 1.1-3.5 MONOCYTE # (test code = 0.6 10\S\3/uL 0.0-1.1 MO#) EOSINOPH # (test code = 0.1 10\S\3/uL 0.0-0.7 EO#) BASOPHIL # (test code = 0.0 10\S\3/uL 0.0-0.3 BA#) IG # (test code = IG#) 0.02 10\S\3/uL 0.00-0.06 NRBC # (test code = NRBC#) 0.00 10\S\3/uL 0.00-0.01 NEUTROPH % (test code = 59.6 % 35.0-73.0 NE%) LYMPH % (test code = LY%) 30.4 % 20.0-55.0 MONO % (test code = MO%) 8.5 % 2.5-10.0 EOSINOPH % (test code = 0.9 % 0.0-5.0 EO%) BASOPHIL % (test code = 0.3 % 0.0-2.0 BA%) IG % (test code = IG%) 0.3 % 0.0-0.8 NRBC% (test code = NRBC%) 0.0 % 0.0-0.2 PLT EST (test code = ADEQUATE ADEQUATE PLTEST) PLT MORPH (test code = NORMAL (1.5-3 um) NORMAL PLTMOR) ANISO (test code = ANISO) 2+ NONE A POIK (test code = POIK) 2+ NONE A HYPOCHROM (test code = 3+ NONE A HYPOC) MICROCYTIC (test code = 3+ NONE A MICRO) POLYCHROM (test code = 1+ NONE A POLY) TARGET (test code = TARG) 1+ NONE A AMYLASE AND [id number] 17:00:00 Test Item Value Reference Range Interpretation Comments AMYLASE (test code = 10A) 97 U/L 28-100 LIPASE (test code = 60A) 235 IU/L 73-393 COMPREHENSIVE METABOLIC [id number] 17:00:00 Test Item Value Reference Range Interpretation Comments GLUCOSE (test code 73 mg/dL 75-100 L = 06D) SODIUM (test code 139 mmol/L 136-145 = 01A) POTASSIUM (test 3.5 mmol/L 3.6-5.1 L code = 01B) CHLORIDE (test 106 mmol/L 98-107 code = 04A) CO2 (test code = 26 mmol/L 22-32 02A) ANION GAP (test 10.5 mmol/L code = ANG) BUN (test code = 9 mg/dL 7-18 05D) CREATININE (test 0.7 mg/dL 0.4-1.1 code = 03E) GFR (test code = 117 See_Comment [Automated GFR) mL/min/1.73m\S\2 message] e system which generated this result transmit reuben reference range : >=90. The reference range was not used to interpret this result as normal/abnormal . GFR 135 See_Comment [Automated [place] (test mL/min/1.73m\S\2 message] The code = GFRAA) system which generated this result transmit reuben reference range : >=90. The reference range was not used to interpret this result as normal/abnormal . EGFR (test code = eGFR BY EGFR) CKD-EPI CALCULATION IS NOT RECOMMENDED FOR PATIENTS UNDER 18 YEARS OF AGE. BUN/CREA (test 14 1220 code = BCR) CALCIUM (test code 9.0 mg/dL 8.3-9.5 = 09D) BILI TOTAL (test 0.4 mg/dL 0.2-1.0 code = 11A) PROTEIN (test code 7.7 g/dL 6.4-8.2 = 07D) ALBUMIN (test code 3.9 g/dL 3.5-4.8 = 08D) GLOBULIN (test 3.8 g/dL 1.5-3.8 code = GLB) ALB/GLOB (test 1.0 1.0-2.6 code = AGRR) ALK PHOS (test 54 IU/L 42-121 code = 35A) AST (test code = 21 IU/L See_Comment [Automated 30A) message] The system which generated this result transmit reuben reference range : <=42. The reference range was not used to interpret this result as normal/abnormal . ALT (test code = 23 IU/L See_Comment [Automated 31A) message] The system which generated this result transmit reuben reference range : <=78. The reference range was not used to interpret this result as normal/abnormal . [id number] 16:53:00 Test Item Value Reference Range Interpretation Comments MAGNESIUM (test code = 48A) 2.0 mg/dL 1.8-2.4 PRO TIME AND [id number] 16:52:00 Test Item Value Reference Range Interpretation Comments PT (test code = 11.2 s 9.8-13.6 TT) INR (test code = 1.0 INR) INRH (test code = SUGGESTED THERAPEUTIC INRH) RANGE FOR INR: 2.5 - 3.5 For Patients with Prosthetic Valves or Patients with recurrent Thromboembolic Events 2.0 - 3.0 For Most Other Applications PTT (test code = 32.8 s 20.2-38.0 PTT) PTTH (test code = To monitor the PTTH) effectiveness of heparin, we offer the Anti-Xa (Heparin Assay). It can be used for either unfractionated or LMW Heparin. Order Code is ANTI-XA U/S [id number] 10:45:20 [facility] [place] : 1990 Sex: FExam:Transabdominal pelvic ultrasoundLocation: [id number] Indication: Pelvic painComparison: NoneFindings: Transabdominal pelvic ultrasound was performed. The uterus is 8.9 x 4.6 x 6.4 cm. Double endometrial stripethickness is 6 mm, normal. No free pelvic fluid.The left ovary is 5.8 x 4.9 x 4.8 cm. The increased size is largely due to presence of a 5 x 4 x 3.8 cm cyst, with a couple of thin internal septations.The right ovary is 2.3 x 2.4 x 2.4 cm. Both ovaries have pulsatile flow with color Doppler and spectral waveform analysis. There is a small calcification the uterine wall, likely fibroid.Impression:1. 5 cm complex left ovarian cyst with thin internal septations. Surgical evaluation is recommended.2. Probable small uterine fibroid.Electronically signed by: Srinivas Pinto MD 05/25/2020 10:45 AM CDT [place] [facility] [id number] 09:56:00 [facility] [place] AM[place] : 1990 Sex: FCT Abdomen and Pelvis without contrast.Location: [id number] indication: Left flank painComparison: June 10, 2019Technique: Computed axial images were obtained from the diaphragms through the pubic symphysis without IVcontrast. Suboptimal evaluation of viscera due to lack of contrast. Up to date CT equipment and radia tion dose reduction technique were utilized. Findings: Abdomen: There is a stable 4 mm pleural-basednodule of the left lower lobe (image 14, series 3). The liver, gallbladder, spleen, adrenal glands, and pancreas are without acute abnormality. There is no renal calculus or hydronephrosis. No bowel obs truction.Pelvis: Normal appendix. There is a 5.2 cm mass of the left adnexa which averages 15 Hounsfield units. Uterus is present. Urinary bladder is partially distended. No free pelvic fluid. No acuteosseous abnormality.Impression: 1. 5.2 cm left adnexal mass. This may be a complex ovarian cyst or soft tissue mass. Further evaluation with pelvic ultrasound is recommended.2. No ureteral calculus or hydronephrosis.Electronically signed by: Srinivas Pinto MD 05/25/2020 9:56 AM CDT WITH MANUAL [id number] 09:42:00 Test Item Value Reference Range Interpretation Comments WBC (test code = WBC) 5.6 10\S\3/uL 4.5-11.0 RBC (test code = RBC) 5.53 10\S\6/uL 4.30-5.70 HGB (test code = HBG) 10.6 g/dL 12.0-15.5 L HCT (test code = HCT) 38.2 % 35.0-44.0 MCV (test code = MCV) 69.1 fL 81.0-99.0 L MCH (test code = MCH) 19.2 pg 27.0-31.0 L MCHC (test code = MCHC) 27.7 g/dL 32.0-36.0 L RDW (test code = RDW) 25.2 % 11.5-14.5 H PLT (test code = PLT) 235 10\S\3/uL 130-400 MPV (test code = MPV) 10.2 fL 9.4-12.4 NEUTROP # (test code = 3.0 10\S\3/uL 1.6-8.0 NE#) LYMPH # (test code = 1.9 10\S\3/uL 1.1-3.5 LY#) MONOCYTE # (test code = 0.6 10\S\3/uL 0.0-1.1 MO#) EOSINOPH # (test code = 0.1 10\S\3/uL 0.0-0.7 EO#) BASOPHIL # (test code = 0.0 10\S\3/uL 0.0-0.3 BA#) IG # (test code = IG#) 0.01 10\S\3/uL 0.00-0.06 NRBC # (test code = 0.00 10\S\3/uL 0.00-0.01 NRBC#) NEUTROPH % (test code = 53.7 % 35.0-73.0 NE%) LYMPH % (test code = 33.7 % 20.0-55.0 LY%) MONO % (test code = 10.5 % 2.5-10.0 H MO%) EOSINOPH % (test code = 1.4 % 0.0-5.0 EO%) BASOPHIL % (test code = 0.5 % 0.0-2.0 BA%) IG % (test code = IG%) 0.2 % 0.0-0.8 NRBC% (test code = 0.0 % 0.0-0.2 NRBC%) MAN DIFF (test code = MANUAL HMDIFF) DIFFERENTIAL SEG (test code = SEG) 49 % 42-75 BAND (test code = BAND) 0 % 0-8 LYMPH (test code = 40 % 20-51 LYMPH) MONO (test code = MONO) 8 % 3-11 EOS (test code = EOS) 3 % 0-10 BASO (test code = BASO) 0 % 0-2 RBC MORPH (test code = ABNORMAL NORMAL A RBCMORN) PLT EST (test code = ADEQUATE ADEQUATE PLTEST) PLT MORPH (test code = NORMAL (1.5-3 um) NORMAL PLTMOR) ANISO (test code = 1+ NONE A ANISO) POIK (test code = POIK) 1+ NONE A HYPOCHROM (test code = 1+ NONE A HYPOC) TARGET (test code = 1+ NONE A TARG) AMYLASE AND [id number] 09:35:00 Test Item Value Reference Range Interpretation Comments AMYLASE (test code = 10A) 114 U/L 28-100 H LIPASE (test code = 60A) 279 IU/L 73-393 COMPREHENSIVE METABOLIC [id number] 09:35:00 Test Item Value Reference Range Interpretation Comments GLUCOSE (test code 87 mg/dL 75-100 = 06D) SODIUM (test code 141 mmol/L 136-145 = 01A) POTASSIUM (test 4.0 mmol/L 3.6-5.1 code = 01B) CHLORIDE (test 110 mmol/L 98-107 H code = 04A) CO2 (test code = 27 mmol/L 22-32 02A) ANION GAP (test 8.0 mmol/L code = ANG) BUN (test code = 9 mg/dL 7-18 05D) CREATININE (test 0.8 mg/dL 0.4-1.1 code = 03E) GFR (test code = 95 See_Comment [Automated GFR) mL/min/1.73m\S\2 message] Th e system which generated this result transmit reuebn reference range : >=90. The reference range was not used to interpret this result as normal/abnormal . GFR 110 See_Comment [Automated [place] (test mL/min/1.73m\S\2 message] The code = GFRAA) system which generated this result transmit reuben reference range : >=90. The reference range was not used to interpret this result as normal/abnormal . EGFR (test code = eGFR BY EGFR) CKD-EPI CALCULATION IS NOT RECOMMENDED FOR PATIENTS UNDER 18 YEARS OF AGE. BUN/CREA (test 11 12-20 L code = BCR) CALCIUM (test code 9.0 mg/dL 8.3-9.5 = 09D) BILI TOTAL (test 0.3 mg/dL 0.2-1.0 code = 11A) PROTEIN (test code 7.9 g/dL 6.4-8.2 = 07D) ALBUMIN (test code 3.9 g/dL 3.5-4.8 = 08D) GLOBULIN (test 4.0 g/dL 1.5-3.8 H code = GLB) ALB/GLOB (test 1.0 1.0-2.6 code = AGRR) ALK PHOS (test 55 IU/L 42-121 code = 35A) AST (test code = 24 IU/L See_Comment [Automated 30A) message] The system which generated this result transmit reuben reference range : <=42. The reference range was not used to interpret this result as normal/abnormal . ALT (test code = 23 IU/L See_Comment [Automated 31A) message] The system which generated this result transmit reuben reference range : <=78. The reference range was not used to interpret this result as normal/abnormal . SERUM [id number] 09:30:00 Test Item Value Reference Range Interpretation Comments PREG SRM (test code = PGS) NEGATIVE NEGATIVE URINALYSIS WITH [id number] 09:26:00 Test Item Value Reference Range Interpretation Comments COLOR (test code = COLU) YELLOW YELLOW CLARITY (test code = CLA) CLOUDY CLEAR A GLUCOSE UR (test code = UA NEGATIVE NEGATIVE GLUCOSE) BILI UR (test code = BILE) NEGATIVE NEGATIVE KETONES UR (test code = MAXINE) NEGATIVE NEGATIVE SP GRAVITY (test code = SPGR) 1.021 1.005-1.030 PH UR (test code = PH) 8.0 4.5-8.0 PROTEIN UR (test code = PU) TRACE NEGATIVE A UROBIL UR (test code = UROQ) 0.2 EU/dL 0.2-1.0 NITRITE UR (test code = NEGATIVE NEGATIVE NITRITE) BLOOD UR (test code = UA NEGATIVE NEGATIVE BLOOD) LEUK ES UR (test code = LEUK) 1+ NEGATIVE A WBC UR (test code = UWBC) 6 /HPF 0-5 H RBC UR (test code = URBC) 0 /HPF 0-2 EPITH UR (test code = UEPC) MODERATE /LPF FEW A BACTERIA UR (test code = MODERATE /HPF NONE A UBACT) CAST UR (test code = CAST) /LPF NONE CRYSTAL UR (test code = CRYU) / LPF NONE MUCUS UR (test code = MUC) MODERATE / HPF NONE A AMORPH UR (test code = SUNIL) / HPF NONE TRICH UR (test code = UTRICH) /HPF NONE YEAST UR (test code = UY) /HPF NONE SPERM UR (test code = USPERM) /HPF NONE DIRECT STREP GROUP [id number] 10:38:00 Test Item Value Reference Range Interpretation Comments Culture Observations NO BETA HEMOLYTIC (test code = COB1) STREPTOCOCCUS ISOLATED Direct Exam (test code NEGATIVE FOR STREP A = DE1) ANTIGEN SARS-CoV (RAPID ANTIGEN)[id number] 09:44:00 Test Item Value Reference Range Interpretation Comments SARS-CoV (ANTIGEN) NEGATIVE NEGATIVE (test code = COVAG) COVID AG (test This test has been code = COVAGC) marketed under the FDA Emergency Use Authorization (EUA) to meet challenges of the COVID-19 pandemic. The validation standards normally enforced by the FDA and the [employer] the [place] (CAP) are more stringent than those required for this test. Therefore, the result should be interpreted with caution and close attention to other clinical and epidemiological data DIRECT INFLUENZA A AND B [id number] 09:39:00 Test Item Value Reference Range Interpretation Comments Direct Exam (test PRESUMPTIVE NEGATIVE FOR code = DE1) THE PRESENCE OF INFLUENZA ANTIGEN URINALYSIS WITH [id number] 08:03:00 Test Item Value Reference Range Interpretation Comments COLOR (test code = COLU) YELLOW YELLOW CLARITY (test code = CLA) TURBID CLEAR A GLUCOSE UR (test code = UA GLUCOSE) NEGATIVE NEGATIVE BILI UR (test code = BILE) NEGATIVE NEGATIVE KETONES UR (test code = MAXINE) NEGATIVE NEGATIVE SP GRAVITY (test code = SPGR) 1.020 1.005-1.030 PH UR (test code = PH) 8.0 4.5-8.0 PROTEIN UR (test code = PU) 1+ NEGATIVE A UROBIL UR (test code = UROQ) 1.0 EU/dL 0.2-1.0 NITRITE UR (test code = NITRITE) NEGATIVE NEGATIVE BLOOD UR (test code = UA BLOOD) NEGATIVE NEGATIVE LEUK ES UR (test code = LEUK) 1+ NEGATIVE A WBC UR (test code = UWBC) 4 /HPF 0-5 RBC UR (test code = URBC) 0 /HPF 0-2 EPITH UR (test code = UEPC) FEW /LPF FEW BACTERIA UR (test code = UBACT) FEW /HPF NONE A CAST UR (test code = CAST) /LPF NONE CRYSTAL UR (test code = CRYU) / LPF NONE MUCUS UR (test code = MUC) / HPF NONE AMORPH UR (test code = SUNIL) FEW / HPF NONE A TRICH UR (test code = UTRICH) /HPF NONE YEAST UR (test code = UY) /HPF NONE SPERM UR (test code = USPERM) /HPF NONE URINE [id number] 07:56:00 Test Item Value Reference Range Interpretation Comments PREG UR (test code = PGU) NEGATIVE NEGATIVE CBC WITH [id number] 18:15:00 Test Item Value Reference Range Interpretation Comments WBC (test code = WBC) 6.2 10\S\3/uL 4.5-11.0 RBC (test code = RBC) 5.11 10\S\6/uL 4.30-5.70 HGB (test code = HBG) 9.1 g/dL 12.0-15.5 L HCT (test code = HCT) 33.5 % 35.0-44.0 L MCV (test code = MCV) 65.6 fL 81.0-99.0 L MCH (test code = MCH) 17.8 pg 27.0-31.0 L MCHC (test code = MCHC) 27.2 g/dL 32.0-36.0 L RDW (test code = RDW) 21.5 % 11.5-14.5 H PLT (test code = PLT) 243 10\S\3/uL 130-400 MPV (test code = MPV) 9.9 fL 9.4-12.4 NEUTROP # (test code = NE#) 4.4 10\S\3/uL 1.6-8.0 LYMPH # (test code = LY#) 0.9 10\S\3/uL 1.1-3.5 L MONOCYTE # (test code = 0.7 10\S\3/uL 0.0-1.1 MO#) EOSINOPH # (test code = 0.2 10\S\3/uL 0.0-0.7 EO#) BASOPHIL # (test code = 0.0 10\S\3/uL 0.0-0.3 BA#) IG # (test code = IG#) 0.01 10\S\3/uL 0.00-0.06 NRBC # (test code = NRBC#) 0.00 10\S\3/uL 0.00-0.01 NEUTROPH % (test code = 70.3 % 35.0-73.0 NE%) LYMPH % (test code = LY%) 15.0 % 20.0-55.0 L MONO % (test code = MO%) 11.6 % 2.5-10.0 H EOSINOPH % (test code = 2.4 % 0.0-5.0 EO%) BASOPHIL % (test code = 0.5 % 0.0-2.0 BA%) IG % (test code = IG%) 0.2 % 0.0-0.8 NRBC% (test code = NRBC%) 0.0 % 0.0-0.2 PLT EST (test code = ADEQUATE ADEQUATE PLTEST) PLT MORPH (test code = NORMAL (1.5-3 um) NORMAL PLTMOR) ANISO (test code = ANISO) 2+ NONE A HYPOCHROM (test code = 2+ NONE A HYPOC) MICROCYTIC (test code = 2+ NONE A MICRO) POLYCHROM (test code = 1+ NONE A POLY) TARGET (test code = TARG) 1+ NONE A TEAR DROP (test code = TD) 1+ NONE A [id number] 18:10:00 Test Item Value Reference Range Interpretation Comments CPK (test code = 32A) 136 IU/L 26-192 AMYLASE AND [id number] 18:10:00 Test Item Value Reference Range Interpretation Comments AMYLASE (test code = 10A) 110 U/L 28-100 H LIPASE (test code = 60A) 242 IU/L 73-393 COMPREHENSIVE METABOLIC [id number] 18:10:00 Test Item Value Reference Range Interpretation Comments GLUCOSE (test code = 74 mg/dL 75-100 L 06D) SODIUM (test code = 138 mmol/L 136-145 01A) POTASSIUM (test code = 4.1 mmol/L 3.6-5.1 01B) CHLORIDE (test code = 107 mmol/L 98-107 04A) CO2 (test code = 02A) 23 mmol/L 22-32 ANION GAP (test code = 12.1 mmol/L ANG) BUN (test code = 05D) 7 mg/dL 7-18 CREATININE (test code 0.7 mg/dL 0.4-1.1 = 03E) GFR (test code = GFR) 117 mL/min/1.73m\S\2 >=90 GFR 136 mL/min/1.73m\S\2 >=90 (test code = GFRAA) EGFR (test code = eGFR BY CKD-EPI EGFR) CALCULATION IS NOT RECOMMENDED FOR PATIENTS UNDER 18 YEARS OF AGE. BUN/CREA (test code = 11 12-20 L BCR) CALCIUM (test code = 8.6 mg/dL 8.3-9.5 09D) BILI TOTAL (test code 0.4 mg/dL 0.2-1.0 = 11A) PROTEIN (test code = 7.3 g/dL 6.4-8.2 07D) ALBUMIN (test code = 3.7 g/dL 3.5-4.8 08D) GLOBULIN (test code = 3.6 g/dL 1.5-3.8 GLB) ALB/GLOB (test code = 1.0 1.0-2.6 AGRR) ALK PHOS (test code = 58 IU/L 42-121 35A) AST (test code = 30A) 22 IU/L <=42 ALT (test code = 31A) 17 IU/L <=78 DIRECT STREP GROUP [id number] 18:08:00 Test Item Value Reference Range Interpretation Comments Direct Exam (test code POSITIVE FOR STREP A = DE1) ANTIGEN Direct Exam (test code NEGATIVE INTERNAL = DE2) CONTROL= NEGATIVE Direct Exam (test code POSITIVE INTERNAL = DE3) CONTROL=POSITIVE TROPONIN [id number] 18:07:00 Test Item Value Reference Range Interpretation Comments TROPONIN I (test code = A84) <0.015 ng/mL 0.000-0.045 [id number] 18:07:00 Test Item Value Reference Range Interpretation Comments FERRITIN (test code = A19) 3.2 ng/mL 8.0-252.0 L SARS-CoV (RAPID ANTIGEN)[id number] 18:07:00 Test Item Value Reference Range Interpretation Comments SARS-CoV (ANTIGEN) NEGATIVE NEGATIVE (test code = COVAG) COVID AG (test This test has been code = COVAGC) marketed under the FDA Emergency Use Authorization (EUA) to meet challenges of the COVID-19 pandemic. The validation standards normally enforced by the FDA and the [employer] the [place] (CAP) are more stringent than those required for this test. Therefore, the result should be interpreted with caution and close attention to other clinical and epidemiological data LDH-LACTIC [id number] 18:06:00 Test Item Value Reference Range Interpretation Comments LDH (test code = 33A) 229 IU/L 100-190 H DIRECT INFLUENZA A AND B [id number] 18:06:00 Test Item Value Reference Range Interpretation Comments Direct Exam (test PRESUMPTIVE NEGATIVE FOR code = DE1) THE PRESENCE OF INFLUENZA ANTIGEN [id number] 18:04:00 Test Item Value Reference Range Interpretation Comments MAGNESIUM (test code = 48A) 2.1 mg/dL 1.8-2.4 SERUM [id number] 17:58:00 Test Item Value Reference Range Interpretation Comments PREG SRM (test code = PGS) NEGATIVE NEGATIVE C-REACTIVE PROTEIN [id number] 17:58:00 Test Item Value Reference Range Interpretation Comments CRP (test code = CRP) NEGATIVE (<6MG/L) NEGATIVE (<6MG/L) PRO TIME AND [id number] 17:57:00 Test Item Value Reference Range Interpretation Comments PT (test code = 10.5 s 9.8-13.6 TT) INR (test code = 0.9 INR) INRH (test code = SUGGESTED THERAPEUTIC INRH) RANGE FOR INR: 2.5 - 3.5 For Patients with Prosthetic Valves or Patients with recurrent Thromboembolic Events 2.0 - 3.0 For Most Other Applications PTT (test code = 29.1 s 20.2-38.0 PTT) PTTH (test code = To monitor the PTTH) effectiveness of heparin, we offer the Anti-Xa (Heparin Assay). It can be used for either unfractionated or LMW Heparin. Order Code is ANTI-XA [id number] 17:57:00 Test Item Value Reference Range Interpretation Comments D-DIMER (test code = 219 ng/mL D-DU 0-234 DDI) D-DIMER COMMENT (test *Level to rule out code = DDCOM) DVT or PE: <235 ng/mL D-DU* [id number] 17:53:00 Test Item Value Reference Range Interpretation Comments COLOR (test code = COLU) YELLOW YELLOW CLARITY (test code = CLA) CLEAR CLEAR GLUCOSE UR (test code = UA GLUCOSE) NEGATIVE NEGATIVE BILI UR (test code = BILE) NEGATIVE NEGATIVE KETONES UR (test code = MAXINE) NEGATIVE NEGATIVE SP GRAVITY (test code = SPGR) 1.021 1.005-1.030 PH UR (test code = PH) 6.0 4.5-8.0 PROTEIN UR (test code = PU) NEGATIVE NEGATIVE UROBIL UR (test code = UROQ) 1.0 EU/dL 0.2-1.0 NITRITE UR (test code = NITRITE) NEGATIVE NEGATIVE BLOOD UR (test code = UA BLOOD) NEGATIVE NEGATIVE LEUK ES UR (test code = LEUK) NEGATIVE NEGATIVE CBC WITH [id number] 08:35:00 Test Item Value Reference Range Interpretation Comments WBC (test code = WBC) 3.8 10\S\3/uL 4.5-11.0 L RBC (test code = RBC) 4.58 10\S\6/uL 4.30-5.70 HGB (test code = HBG) 8.3 g/dL 12.0-15.5 L HCT (test code = HCT) 29.0 % 35.0-44.0 L MCV (test code = MCV) 63.3 fL 81.0-99.0 L MCH (test code = MCH) 18.1 pg 27.0-31.0 L MCHC (test code = MCHC) 28.6 g/dL 32.0-36.0 L RDW (test code = RDW) 20.6 % 11.5-14.5 H PLT (test code = PLT) 220 10\S\3/uL 130-400 MPV (test code = MPV) 9.4 fL 9.4-12.4 NEUTROP # (test code = NE#) 1.9 10\S\3/uL 1.6-8.0 LYMPH # (test code = LY#) 1.2 10\S\3/uL 1.1-3.5 MONOCYTE # (test code = 0.5 10\S\3/uL 0.0-1.1 MO#) EOSINOPH # (test code = 0.1 10\S\3/uL 0.0-0.7 EO#) BASOPHIL # (test code = 0.0 10\S\3/uL 0.0-0.3 BA#) IG # (test code = IG#) 0.00 10\S\3/uL 0.00-0.06 NRBC # (test code = NRBC#) 0.00 10\S\3/uL 0.00-0.01 NEUTROPH % (test code = 50.2 % 35.0-73.0 NE%) LYMPH % (test code = LY%) 33.0 % 20.0-55.0 MONO % (test code = MO%) 13.6 % 2.5-10.0 H EOSINOPH % (test code = 2.1 % 0.0-5.0 EO%) BASOPHIL % (test code = 1.1 % 0.0-2.0 BA%) IG % (test code = IG%) 0.0 % 0.0-0.8 NRBC% (test code = NRBC%) 0.0 % 0.0-0.2 PLT EST (test code = ADEQUATE ADEQUATE PLTEST) PLT MORPH (test code = NORMAL (1.5-3 um) NORMAL PLTMOR) ANISO (test code = ANISO) 1+ NONE A HYPOCHROM (test code = 2+ NONE A HYPOC) MICROCYTIC (test code = 1+ NONE A MICRO) POLYCHROM (test code = 1+ NONE A POLY) URINALYSIS WITH [id number] 08:19:00 Test Item Value Reference Range Interpretation Comments COLOR (test code = YELLOW YELLOW COLU) CLARITY (test code = CLOUDY CLEAR A CLA) GLUCOSE UR (test code = NEGATIVE NEGATIVE UA GLUCOSE) BILI UR (test code = NEGATIVE NEGATIVE BILE) KETONES UR (test code = NEGATIVE NEGATIVE MAXINE) SP GRAVITY (test code = 1.027 1.005-1.030 SPGR) PH UR (test code = PH) 6.0 4.5-8.0 PROTEIN UR (test code = NEGATIVE NEGATIVE PU) UROBIL UR (test code = 0.2 EU/dL 0.2-1.0 UROQ) NITRITE UR (test code = NEGATIVE NEGATIVE NITRITE) BLOOD UR (test code = 2+ NEGATIVE A UA BLOOD) LEUK ES UR (test code = NEGATIVE NEGATIVE LEUK) WBC UR (test code = 2 /HPF 0-5 UWBC) RBC UR (test code = 4 /HPF 0-2 H URBC) EPITH UR (test code = MODERATE /LPF FEW A UEPC) BACTERIA UR (test code FEW /HPF NONE A = UBACT) CAST UR (test code = /LPF NONE CAST) CRYSTAL UR (test code = CALCIUM OXALATE NONE A CRYU) MODERATE / LPF MUCUS UR (test code = FEW / HPF NONE A MUC) AMORPH UR (test code = / HPF NONE SUNIL) TRICH UR (test code = /HPF NONE UTRICH) YEAST UR (test code = /HPF NONE UY) SPERM UR (test code = /HPF NONE USPERM) TROPONIN [id number] 08:18:00 Test Item Value Reference Range Interpretation Comments TROPONIN I (test code = A84) <0.015 ng/mL 0.000-0.045 AMYLASE AND [id number] 08:18:00 Test Item Value Reference Range Interpretation Comments AMYLASE (test code = 10A) 83 U/L 28-100 LIPASE (test code = 60A) 298 IU/L 73-393 COMPREHENSIVE METABOLIC [id number] 08:18:00 Test Item Value Reference Range Interpretation Comments GLUCOSE (test code = 82 mg/dL 75-100 06D) SODIUM (test code = 144 mmol/L 136-145 01A) POTASSIUM (test code = 4.0 mmol/L 3.6-5.1 01B) CHLORIDE (test code = 111 mmol/L 98-107 H 04A) CO2 (test code = 02A) 22 mmol/L 22-32 ANION GAP (test code = 15.0 mmol/L ANG) BUN (test code = 05D) 10 mg/dL 7-18 CREATININE (test code 0.8 mg/dL 0.4-1.1 = 03E) GFR (test code = GFR) 102 mL/min/1.73m\S\2 >=90 GFR 118 mL/min/1.73m\S\2 >=90 (test code = GFRAA) EGFR (test code = eGFR BY CKD-EPI EGFR) CALCULATION IS NOT RECOMMENDED FOR PATIENTS UNDER 18 YEARS OF AGE. BUN/CREA (test code = 13 12-20 BCR) CALCIUM (test code = 8.6 mg/dL 8.3-9.5 09D) BILI TOTAL (test code 0.2 mg/dL 0.2-1.0 = 11A) PROTEIN (test code = 7.1 g/dL 6.4-8.2 07D) ALBUMIN (test code = 3.6 g/dL 3.5-4.8 08D) GLOBULIN (test code = 3.5 g/dL 1.5-3.8 GLB) ALB/GLOB (test code = 1.0 1.0-2.6 AGRR) ALK PHOS (test code = 59 IU/L 42-121 35A) AST (test code = 30A) 25 IU/L <=42 ALT (test code = 31A) 16 IU/L <=78 URINE [id number] 08:06:00 Test Item Value Reference Range Interpretation Comments PREG UR (test code = PGU) NEGATIVE NEGATIVE CBC WITH [id number] 08:32:00 Test Item Value Reference Range Interpretation Comments WBC (test code = WBC) 4.7 10\S\3/uL 4.5-11.0 RBC (test code = RBC) 4.86 10\S\6/uL 4.30-5.70 HGB (test code = HBG) 8.5 g/dL 12.0-15.5 L HCT (test code = HCT) 30.4 % 35.0-44.0 L MCV (test code = MCV) 62.6 fL 81.0-99.0 L MCH (test code = MCH) 17.5 pg 27.0-31.0 L MCHC (test code = MCHC) 28.0 g/dL 32.0-36.0 L RDW (test code = RDW) 21.2 % 11.5-14.5 H PLT (test code = PLT) 245 10\S\3/uL 130-400 MPV (test code = MPV) 9.8 fL 9.4-12.4 NEUTROP # (test code = NE#) 2.9 10\S\3/uL 1.6-8.0 LYMPH # (test code = LY#) 1.2 10\S\3/uL 1.1-3.5 MONOCYTE # (test code = 0.6 10\S\3/uL 0.0-1.1 MO#) EOSINOPH # (test code = 0.0 10\S\3/uL 0.0-0.7 EO#) BASOPHIL # (test code = 0.0 10\S\3/uL 0.0-0.3 BA#) IG # (test code = IG#) 0.00 10\S\3/uL 0.00-0.06 NRBC # (test code = NRBC#) 0.00 10\S\3/uL 0.00-0.01 NEUTROPH % (test code = 61.6 % 35.0-73.0 NE%) LYMPH % (test code = LY%) 25.2 % 20.0-55.0 MONO % (test code = MO%) 11.8 % 2.5-10.0 H EOSINOPH % (test code = 0.8 % 0.0-5.0 EO%) BASOPHIL % (test code = 0.6 % 0.0-2.0 BA%) IG % (test code = IG%) 0.0 % 0.0-0.8 NRBC% (test code = NRBC%) 0.0 % 0.0-0.2 PLT EST (test code = ADEQUATE ADEQUATE PLTEST) PLT MORPH (test code = NORMAL (1.5-3 um) NORMAL PLTMOR) ANISO (test code = ANISO) 2+ NONE A HYPOCHROM (test code = 3+ NONE A HYPOC) MICROCYTIC (test code = 2+ NONE A MICRO) TARGET (test code = TARG) 1+ NONE A OVALOCYTES (test code = 1+ NONE A OVA) TEAR DROP (test code = TD) 1+ NONE A SCHISTO (test code = PATRICIO) 1+ NONE A AMYLASE AND [id number] 08:31:00 Test Item Value Reference Range Interpretation Comments AMYLASE (test code = 10A) 111 U/L 28-100 H LIPASE (test code = 60A) 293 IU/L 73-393 COMPREHENSIVE METABOLIC [id number] 08:31:00 Test Item Value Reference Range Interpretation Comments GLUCOSE (test code = 06D) 88 mg/dL 75-100 SODIUM (test code = 01A) 139 mmol/L 136-145 POTASSIUM (test code = 01B) 3.9 mmol/L 3.6-5.1 CHLORIDE (test code = 04A) 111 mmol/L 98-107 H CO2 (test code = 02A) 23 mmol/L 22-32 ANION GAP (test code = ANG) 8.9 mmol/L BUN (test code = 05D) 6 mg/dL 7-18 L CREATININE (test code = 03E) 0.6 mg/dL 0.4-1.1 BUN/CREA (test code = BCR) 9 12-20 L CALCIUM (test code = 09D) 8.8 mg/dL 8.3-9.5 BILI TOTAL (test code = 11A) 0.2 mg/dL 0.2-1.0 PROTEIN (test code = 07D) 7.6 g/dL 6.4-8.2 ALBUMIN (test code = 08D) 3.7 g/dL 3.5-4.8 GLOBULIN (test code = GLB) 3.9 g/dL 1.5-3.8 H ALB/GLOB (test code = AGRR) 0.9 1.0-2.6 L ALK PHOS (test code = 35A) 54 IU/L 42-121 AST (test code = 30A) 17 IU/L <=42 ALT (test code = 31A) 18 IU/L <=78 DIRECT INFLUENZA A AND B [id number] 08:22:00 Test Item Value Reference Range Interpretation Comments Direct Exam (test PRESUMPTIVE NEGATIVE FOR code = DE1) THE PRESENCE OF INFLUENZA ANTIGEN SERUM [id number] 08:20:00 Test Item Value Reference Range Interpretation Comments PREG SRM (test code = PGS) NEGATIVE NEGATIVE URINALYSIS WITH [id number] 08:18:00 Test Item Value Reference Range Interpretation Comments COLOR (test code = COLU) YELLOW YELLOW CLARITY (test code = CLA) CLOUDY CLEAR A GLUCOSE UR (test code = UA NEGATIVE NEGATIVE GLUCOSE) BILI UR (test code = BILE) NEGATIVE NEGATIVE KETONES UR (test code = MAXINE) NEGATIVE NEGATIVE SP GRAVITY (test code = SPGR) 1.024 1.005-1.030 PH UR (test code = PH) 7.5 4.5-8.0 PROTEIN UR (test code = PU) TRACE NEGATIVE A UROBIL UR (test code = UROQ) 1.0 EU/dL 0.2-1.0 NITRITE UR (test code = NEGATIVE NEGATIVE NITRITE) BLOOD UR (test code = UA BLOOD) NEGATIVE NEGATIVE LEUK ES UR (test code = LEUK) NEGATIVE NEGATIVE WBC UR (test code = UWBC) 1 /HPF 0-5 RBC UR (test code = URBC) 0 /HPF 0-2 EPITH UR (test code = UEPC) MODERATE /LPF FEW A BACTERIA UR (test code = UBACT) FEW /HPF NONE A CAST UR (test code = CAST) /LPF NONE CRYSTAL UR (test code = CRYU) / LPF NONE MUCUS UR (test code = MUC) / HPF NONE AMORPH UR (test code = SUNIL) / HPF NONE TRICH UR (test code = UTRICH) /HPF NONE YEAST UR (test code = UY) /HPF NONE SPERM UR (test code = USPERM) /HPF NONE XR CHEST 2 [id number] 07:32:47CLINICAL INFORMATION: [id number]: DyspneaDictation location: L 11COMPARISON: 03/08/18.FINDINGS: The heart size and pulmonary vessels are unremarkable.Slight nonspecific increase in interstitial markingsis noted. No active consolidation, effusion, or soft tissue mass is identified.The bones appear grossly intact.IMPRESSION: No active disease of the heart or lungs identified. No intervalchange.XR CHEST 1 [id number] 09:01:26 EXAM: XR CHEST 1 VIEW.LOCATION: D4.HISTORY: [id number]: Nasal congestion.COMPARISON: Radiograph dated 01/27/17.TECHNIQUE: Single AP view of the chest was obtained. FINDINGS:The heart is normal in size. The lungs are clear. No acute osseous abnormalityis identified.IMPRESSION:No acute cardiopulmonary abnormality.DIRECT INFLUENZA A AND B [id number] 08:46:00 Test Item Value Reference Range Interpretation Comments Direct Exam (test PRESUMPTIVE NEGATIVE FOR code = DE1) THE PRESENCE OF INFLUENZA ANTIGEN URINE [id number] 08:32:00 Test Item Value Reference Range Interpretation Comments PREG UR (test code = PGU) NEGATIVE NEGATIVE CT STONE PROTOCOL [id number] 07:05:43CT abdomen and pelvis with contrastLocation:X4Ejytsoljhm:Right flank painComparison: Not availableTec hnique: Axial CT of the abdomen and pelvis without contrast. Sagittal andcoronal reformatted images are provided for interpretation. [facility] CT [facility] use dose modulation, iterative reconstruction, and orweight-based dosing when appropriate to reduce radiation dose to as low asreasonably achievable.Findings: The lungs are equally and symmetrically inflated.The liver is normal in size and density. The gallbladder appears unremarkable.The spleen, pancreas and adrenal glands appear normal.The kidneys are normal in size and density. No renal stone or hydronephrosis.The ureters are normal in course and caliber. The urinary bladder appearsunremarkable. The uterus is normal in size.The bowel is normal in course and caliber. No free air or free fluid. Theappendix is normal. Fat- containing umbilical hernia is noted with no evidenceof constipation.No acute bony or soft tissue abnormality. Sacralization of the right [id number] process is noted.Impression: No acute abdominal or pelvic abnormality.AMYLASE AND LIPASE 2017-08-09 06:25:00 Test Item Value Reference Range Interpretation Comments AMYLASE (test code = 10A) 113 U/L 28-100 H LIPASE (test code = 60A) 522 IU/L 73-393 H COMPREHENSIVE METABOLIC [id number] 06:25:00 Test Item Value Reference Range Interpretation Comments GLUCOSE (test code = 06D) 90 mg/dL 75-100 SODIUM (test code = 01A) 141 mmol/L 136-145 POTASSIUM (test code = 01B) 4.1 mmol/L 3.6-5.1 CHLORIDE (test code = 04A) 111 mmol/L 98-107 H CO2 (test code = 02A) 25 mmol/L 22-32 ANION GAP (test code = ANG) 9.1 mmol/L BUN (test code = 05D) 12 mg/dL 7-18 CREATININE (test code = 03E) 0.7 mg/dL 0.4-1.1 BUN/CREA (test code = BCR) 16 12-20 CALCIUM (test code = 09D) 8.7 mg/dL 8.3-9.5 BILI TOTAL (test code = 11A) 0.2 mg/dL 0.2-1.0 PROTEIN (test code = 07D) 7.0 g/dL 6.4-8.2 ALBUMIN (test code = 08D) 3.6 g/dL 3.5-4.8 GLOBULIN (test code = GLB) 3.4 g/dL 1.5-3.8 ALB/GLOB (test code = AGRR) 1.1 1.0-2.6 ALK PHOS (test code = 35A) 46 IU/L 42-121 AST (test code = 30A) 17 IU/L <=42 ALT (test code = 31A) 14 IU/L <=78 URINALYSIS WITH [id number] 06:18:00 Test Item Value Reference Range Interpretation Comments COLOR (test code = COLU) YELLOW YELLOW CLARITY (test code = CLA) TURBID CLEAR A GLUCOSE UR (test code = UA GLUCOSE) NEGATIVE NEGATIVE BILI UR (test code = BILE) NEGATIVE NEGATIVE KETONES UR (test code = MAXINE) NEGATIVE NEGATIVE SP GRAVITY (test code = SPGR) 1.024 1.005-1.030 PH UR (test code = PH) 6.0 4.5-8.0 PROTEIN UR (test code = PU) NEGATIVE NEGATIVE UROBIL UR (test code = UROQ) 0.2 EU/dL 0.2-1.0 NITRITE UR (test code = NITRITE) NEGATIVE NEGATIVE BLOOD UR (test code = UA BLOOD) NEGATIVE NEGATIVE LEUK ES UR (test code = LEUK) NEGATIVE NEGATIVE WBC UR (test code = UWBC) 1 /HPF 0-5 RBC UR (test code = URBC) 0 /HPF 0-2 EPITH UR (test code = UEPC) MANY /LPF FEW A BACTERIA UR (test code = UBACT) MANY /HPF NONE A CAST UR (test code = CAST) /LPF NONE CRYSTAL UR (test code = CRYU) / LPF NONE MUCUS UR (test code = MUC) / HPF NONE AMORPH UR (test code = SUNIL) / HPF NONE TRICH UR (test code = UTRICH) /HPF NONE YEAST UR (test code = UY) /HPF NONE SPERM UR (test code = USPERM) /HPF NONE CBC (INCLUDES AUTOMATED DIFFERENTIAL)2017-08-09 06:13:00 Test Item Value Reference Range Interpretation Comments WBC (test code = WBC) 4.8 10\S\3/uL 4.5-11.0 RBC (test code = RBC) 4.56 10\S\6/uL 4.30-5.70 HGB (test code = HBG) 8.8 g/dL 12.0-15.5 L HCT (test code = HCT) 29.9 % 35.0-44.0 L MCV (test code = MCV) 65.6 fL 81.0-99.0 L MCH (test code = MCH) 19.3 pg 27.0-31.0 L MCHC (test code = MCHC) 29.4 g/dL 32.0-36.0 L RDW (test code = RDW) 21.1 % 11.5-14.5 H PLT (test code = PLT) 232 10\S\3/uL 130-400 MPV (test code = MPV) 9.9 fL 9.4-12.4 NEUTROP # (test code = NE#) 2.4 10\S\3/uL 1.6-8.0 LYMPH # (test code = LY#) 1.7 10\S\3/uL 1.1-3.5 MONOCYTE # (test code = MO#) 0.6 10\S\3/uL 0.0-1.1 EOSINOPH # (test code = EO#) 0.2 10\S\3/uL 0.0-0.7 BASOPHIL # (test code = BA#) 0.0 10\S\3/uL 0.0-0.3 IG # (test code = IG#) 0.00 10\S\3/uL 0.00-0.06 NRBC # (test code = NRBC#) 0.00 10\S\3/uL 0.00-0.01 NEUTROPH % (test code = NE%) 49.2 % 35.0-73.0 LYMPH % (test code = LY%) 34.4 % 20.0-55.0 MONO % (test code = MO%) 12.7 % 2.5-10.0 H EOSINOPH % (test code = EO%) 3.1 % 0.0-5.0 BASOPHIL % (test code = BA%) 0.6 % 0.0-2.0 IG % (test code = IG%) 0.0 % 0.0-0.8 NRBC% (test code = NRBC%) 0.0 % 0.0-0.2 MANDIFF (test code = MDIFF) NO NO RBC MORPH (test code = RBCMOR) NORMAL URINE [id number] 06:11:00 Test Item Value Reference Range Interpretation Comments PREG UR (test code = PGU) NEGATIVE NEGATIVE DIRECT STREP GROUP [id number] 07:41:00 Test Item Value Reference Range Interpretation Comments Culture Observations NO BETA HEMOLYTIC (test code = COB1) STREPTOCOCCUS ISOLATED Direct Exam (test code NEGATIVE FOR STREP A = DE3) ANTIGEN DIRECT INFLUENZA A AND B [id number] 16:15:00 Test Item Value Reference Range Interpretation Comments Direct Exam (test POSITIVE FOR INFLUENZA A code = DE3) VIRAL ANTIGEN XR CHEST 1 VIEW [id number] 16:05:05Portable AP chest, 1 viewLocation Code: [id number] HISTORY: coughCOMPARISON: 11/24/16COMMENT: The lungs are clear and well inflated. The costophrenic angles are sharp. Thecardiomediastinal silhouette is unremarkable. The bones are intact.IMPRESSION: No acute abnormalityDIRECT STREP GROUP [id number] 08:12:00 Test Item Value Reference Range Interpretation Comments Culture Observations NO BETA HEMOLYTIC (test code = COB1) STREPTOCOCCUS ISOLATED Direct Exam (test code NO STREPTOCOCCUS GROUP = DE1) A ANTIGEN DETECTED CT PE [id number] 13:52:31EXAM: CTA CHEST WITH CONTRASTDATE: 11/24/2016 1:01 PMINDICATION: Chest pain, abdominal pain, elevated d-dimerCOMPARISON: Chest 2 views 11/24/16 at 1211 hoursTECHNIQUE: Volumetric CT acquisition of the chest, during pulmonary arterialphase, after intravenous contrast. Axial, sagittal, coronal, and oblique MIPreconstructions are created at the acquisition workstation. One or more of thefollowing dose reduction techniques were used: Automated exposure control,adjustment of the mA and or KV according topatient size, and/or utilization ofiterative reconstruction technique.IV Contrast: 96 mL Omnipaque 350DLP: 1802 mGy-cmLOCATION: B1LISXMMEH: Lines and tubes: None.Lower neck: Unremarkable.Heart and Mediastinum: The heart is normal in size. The left ventricle ismildly enlarged. Coronary arteries are unremarkable.Pleura: NormalLymph Nodes: There is no hilar, mediastinal, axillary or internal mammarylymphadenopathy.Lungs: There is a 7 mm left subpleural nodule adjacent to the lefthemidiaphragm, thought to represent lymph node.Trachea: Midline. The central bronchi are patent.Upper abdomen: The IVC is distended. The remainder of the abdominal organs arenormal.Bones and soft tissues: NormalIMPRESSION: 1.No pulmonary emboli detected2. No acute disease in the chest3. Mild left ventricular enlargementRECOMMENDATIONS: NoneCT ABDOMEN AND PELVIS WITH CONTRAST 2016-11-24 13:40:07CT abdomen and pelvis with contrastLocation Code: [id number] HISTORY: lower abd painCOMPARISON: 06/21/16Technique: Helical CT of the abdomen and pelvis was performed followingintravenous contrast. Thinsection axial, sagittal and coronal images wereobtained. One or more of the following dose reductiontechniques were used:Automated exposure control, adjustment of the mA and or KV according to patientsize, and/or utilization of iterative reconstruction technique. DLP: 1802mGy-cm.FINDINGS:The lung bases are clear. The liver, gallbladder, adrenal glands, kidneys, pancreas, and spleen areunremarkable.The unopacified loops of bowel demonstrate no focal thickening or dilatation.The appendix is visualized and is normal. There is no free peritoneal air orfluid. The abdominal aorta is normal in caliber and contour. There is noretroperitoneal mass or fluid collection. The urinary bladder is unremarkable.There is no pelvic mass or fluid collection. Dominant follicles are present onboth ovaries. Previouslynoted left ovarian cyst is smaller on today's exam at2.1 cm.The bones, skin, and surrounding soft tissues are unremarkable.IMPRESSION: Small left ovarian cyst and otherwise essentially unremarkable exam.CT HEAD W/O [id number] 13:15:38CT brain without contrast.Location code: [id number] HISTORY: left sided headache x 3 weeks COMPARISON: None.TECHNIQUE: Routine unenhanced axial imaging of the brain was performed. Oneor more of the following dose reduction techniques were used: Automatedexposure control, adjustment of the mA and or KVaccording to patient size,and/or utilization of iterative reconstruction technique. DLP: 598 mGy-cm. FINDINGS: There is no acute intracranial hemorrhage or extra-axial collection.There is no hydrocephalus, midline shift, or space occupying mass. Kilgore-whitematter differentiation is well preserved with no definite CT evidence of anacute infarct. The cranial vault and skull base are intact. The paranasal sinuses and mastoidair cells are pneumatized and well aerated. IMPRESSION: No acute intracranial abnormality.CARDIAC [id number] 13:02:00 Test Item Value Reference Range Interpretation Comments TROPONIN I (test code = A84) <0.015 ng/mL 0.000-0.045 CKMB (test code = A49) <1.0 ng/mL <=3.6 CPK (test code = 32A) 127 IU/L 26-192 PRO TIME AND [id number] 12:59:00 Test Item Value Reference Range Interpretation Comments PT (test code = 10.6 s 9.8-13.6 TT) INR (test code = 1.0 INR) INRH (test code = SUGGESTED THERAPEUTIC INRH) RANGE FOR INR: 2.5 - 3.5 For Patients with Prosthetic Valves or Patients with recurrent Thromboembolic Events 2.0 - 3.0 For Most Other Applications PTT (test code = 27.5 s 20.2-38.0 PTT) PTTH (test code = To monitor the PTTH) effectiveness of heparin, we offer the Anti-Xa (Heparin Assay). It can be used for either unfractionated or LMW Heparin. Order Code is ANTI-XA [id number] 12:59:00 Test Item Value Reference Range Interpretation Comments D-DIMER (test code = 682 ng/mL D-DU 0-234 H DDI) D-DIMER COMMENT (test *Level to rule out code = DDCOM) DVT or PE: <235 ng/mL D-DU* CBC WITH [id number] 12:58:00 Test Item Value Reference Range Interpretation Comments WBC (test code = WBC) 4.0 10\S\3/uL 4.5-11.0 L RBC (test code = RBC) 4.77 10\S\6/uL 4.30-5.70 HGB (test code = HBG) 8.7 g/dL 12.0-15.5 L HCT (test code = HCT) 30.8 % 35.0-44.0 L MCV (test code = MCV) 64.6 fL 81.0-99.0 L MCH (test code = MCH) 18.2 pg 27.0-31.0 L MCHC (test code = MCHC) 28.2 g/dL 32.0-36.0 L RDW (test code = RDW) 21.3 % 11.5-14.5 H PLT (test code = PLT) 234 10\S\3/uL 130-400 MPV (test code = MPV) 10.0 fL 9.4-12.4 NEUTROP # (test code = NE#) 2.0 10\S\3/uL 1.6-8.0 LYMPH # (test code = LY#) 1.5 10\S\3/uL 1.1-3.5 MONOCYTE # (test code = 0.4 10\S\3/uL 0.0-1.1 MO#) EOSINOPH # (test code = 0.1 10\S\3/uL 0.0-0.7 EO#) BASOPHIL # (test code = 0.0 10\S\3/uL 0.0-0.3 BA#) IG # (test code = IG#) 0.01 10\S\3/uL 0.00-0.06 NRBC # (test code = NRBC#) 0.00 10\S\3/uL 0.00-0.01 NEUTROPH % (test code = 50.3 % 35.0-73.0 NE%) LYMPH % (test code = LY%) 36.8 % 20.0-55.0 MONO % (test code = MO%) 8.8 % 2.5-10.0 EOSINOPH % (test code = 3.3 % 0.0-5.0 EO%) BASOPHIL % (test code = 0.5 % 0.0-2.0 BA%) IG % (test code = IG%) 0.3 % 0.0-0.8 NRBC% (test code = NRBC%) 0.0 % 0.0-0.2 PLT EST (test code = ADEQUATE ADEQUATE PLTEST) PLT MORPH (test code = NORMAL (1.5-3 um) NORMAL PLTMOR) ANISO (test code = ANISO) 3+ NONE A HYPOCHROM (test code = 2+ NONE A HYPOC) MICROCYTIC (test code = 3+ NONE A MICRO) TARGET (test code = TARG) 1+ NONE A TEAR DROP (test code = TD) 1+ NONE A AMYLASE AND [id number] 12:56:00 Test Item Value Reference Range Interpretation Comments AMYLASE (test code = 10A) 74 U/L 28-100 LIPASE (test code = 60A) 237 IU/L 73-393 COMPREHENSIVE METABOLIC [id number] 12:56:00 Test Item Value Reference Range Interpretation Comments GLUCOSE (test code = 06D) 76 mg/dL 75-100 SODIUM (test code = 01A) 142 mmol/L 136-145 POTASSIUM (test code = 01B) 3.8 mmol/L 3.6-5.1 CHLORIDE (test code = 04A) 111 mmol/L 98-107 H CO2 (test code = 02A) 27 mmol/L 22-32 ANION GAP (test code = ANG) 7.8 mmol/L BUN (test code = 05D) 10 mg/dL 7-18 CREATININE (test code = 03E) 0.7 mg/dL 0.4-1.1 BUN/CREA (test code = BCR) 14 12-20 CALCIUM (test code = 09D) 8.5 mg/dL 8.3-9.5 BILI TOTAL (test code = 11A) 0.6 mg/dL 0.2-1.0 PROTEIN (test code = 07D) 7.1 g/dL 6.4-8.2 ALBUMIN (test code = 08D) 3.6 g/dL 3.5-4.8 GLOBULIN (test code = GLB) 3.5 g/dL 1.5-3.8 ALB/GLOB (test code = AGRR) 1.0 1.0-2.6 ALK PHOS (test code = 35A) 47 IU/L 42-121 AST (test code = 30A) 15 IU/L <=42 ALT (test code = 31A) 16 IU/L <=78 SERUM [id number] 12:54:00 Test Item Value Reference Range Interpretation Comments PREG SRM (test code = PGS) NEGATIVE NEGATIVE DIRECT INFLUENZA A AND B [id number] 12:54:00 Test Item Value Reference Range Interpretation Comments Direct Exam (test PRESUMPTIVE NEGATIVE FOR code = DE1) THE PRESENCE OF INFLUENZA ANTIGEN XR CHEST 2 [id number] 12:13:35Exam: Chest x-ray 2 viewsHISTORY: Chest painLocation: [id number]:The heart size is normal and lung martinez are clear. Osseous structures areintact.IMPRESSION:1. Normal chest. No change from 05/02/16.URINALYSIS WITH [id number] 12:03:00 Test Item Value Reference Range Interpretation Comments COLOR (test code = COLU) YELLOW YELLOW CLARITY (test code = CLA) CLOUDY CLEAR A GLUCOSE UR (test code = UA NEGATIVE NEGATIVE GLUCOSE) BILI UR (test code = BILE) NEGATIVE NEGATIVE KETONES UR (test code = MAXINE) NEGATIVE NEGATIVE SP GRAVITY (test code = 1.026 1.005-1.030 SPGR) PH UR (test code = PH) 6.0 4.5-8.0 PROTEIN UR (test code = PU) NEGATIVE NEGATIVE UROBIL UR (test code = UROQ) 1.0 EU/dL 0.2-1.0 NITRITE UR (test code = NEGATIVE NEGATIVE NITRITE) BLOOD UR (test code = UA NEGATIVE NEGATIVE BLOOD) LEUK ES UR (test code = NEGATIVE NEGATIVE LEUK) WBC UR (test code = UWBC) 1 /HPF 0-5 RBC UR (test code = URBC) 0 /HPF 0-2 EPITH UR (test code = UEPC) FEW /LPF FEW BACTERIA UR (test code = FEW /HPF NONE A UBACT) CAST UR (test code = CAST) HYALINE FEW /LPF NONE A CRYSTAL UR (test code = / LPF NONE CRYU) MUCUS UR (test code = MUC) FEW / HPF NONE A AMORPH UR (test code = SUNIL) / HPF NONE TRICH UR (test code = /HPF NONE UTRICH) YEAST UR (test code = UY) /HPF NONE SPERM UR (test code = /HPF NONE USPERM) URINE [id number] 11:51:00 Test Item Value Reference Range Interpretation Comments PREG UR (test code = PGU) NEGATIVE NEGATIVE BLOOD [id number] 08:55:00 Test Item Value Reference Range Interpretation Comments Culture Observations (test NO GROWTH AFTER 5 code = COB1) DAYS BLOOD [id number] 08:55:00 Test Item Value Reference Range Interpretation Comments Culture Observations (test NO GROWTH AFTER 5 code = COB1) DAYS LACTIC [id number] 13:43:00 Test Item Value Reference Range Interpretation Comments LACTIC ACD (test code = LA) 1.3 mmol/L 0.4-2.0 CT ABDOMEN AND PELVIS W/O [id number] 13:08:11CT abdomen and pelvis without contrastLocation Code: [id number] HISTORY: back pain vomiting hematuria COMPARISON: 05/31/12Technique: Helical CT of the abdomen and pelvis was performed withoutintravenouscontrast. Thin section axial, sagittal and coronal images wereobtained. One or more of the followingdose reduction techniques were used:Automated exposure control, adjustment of the mA and or KV according to patientsize, and/or utilization of iterative reconstruction technique. DLP: 610mGy-cm. FINDINGS:The lung bases are clear. The liver, gallbladder, adrenal glands, kidneys, pancreas, and spleen areunremarkable.The unopacified loops of bowel demonstrate no focal thickening or dilatation.The appendix is visualized and is normal. There is no free peritoneal air orfluid. The abdominal aorta is normal in caliber and contour. There is noretroperitoneal mass or fluid collection. The urinary bladder isunremarkable.There is no pelvic mass or fluid collection. 2.4 cm dominant follicular cyston the leftovary noted.The bones, skin, and surrounding soft tissues are unremarkable.IMPRESSION: 2.4 cm cyst on the left ovary and otherwise essentially unremarkable exam.CBC WITH MORPHOLOGY 2016-06-21 12:54:00 Test Item Value Reference Range Interpretation Comments WBC (test code = WBC) 8.9 10\S\3/uL 4.5-11.0 RBC (test code = RBC) 4.71 10\S\6/uL 4.30-5.70 HGB (test code = HBG) 8.5 g/dL 12.0-15.5 L HCT (test code = HCT) 30.9 % 35.0-44.0 L MCV (test code = MCV) 65.6 fL 81.0-99.0 L MCH (test code = MCH) 18.0 pg 27.0-31.0 L MCHC (test code = MCHC) 27.5 g/dL 32.0-36.0 L RDW (test code = RDW) 21.6 % 11.5-14.5 H PLT (test code = PLT) 222 10\S\3/uL 130-400 MPV (test code = MPV) 0.0 fL 9.4-12.4 L NEUTROP # (test code = NE#) 7.0 10\S\3/uL 1.6-8.0 LYMPH # (test code = LY#) 1.1 10\S\3/uL 1.1-3.5 MONOCYTE # (test code = MO#) 0.7 10\S\3/uL 0.0-1.1 EOSINOPH # (test code = EO#) 0.1 10\S\3/uL 0.0-0.7 BASOPHIL # (test code = BA#) 0.0 10\S\3/uL 0.0-0.3 IG # (test code = IG#) 0.04 10\S\3/uL 0.00-0.06 NRBC # (test code = NRBC#) 0.00 10\S\3/uL 0.00-0.01 NEUTROPH % (test code = NE%) 78.0 % 35.0-73.0 H LYMPH % (test code = LY%) 12.1 % 20.0-55.0 L MONO % (test code = MO%) 8.1 % 2.5-10.0 EOSINOPH % (test code = EO%) 1.2 % 0.0-5.0 BASOPHIL % (test code = BA%) 0.2 % 0.0-2.0 IG % (test code = IG%) 0.4 % 0.0-0.8 NRBC% (test code = NRBC%) 0.0 % 0.0-0.2 PLT EST (test code = PLTEST) ADEQUATE ADEQUATE PLT MORPH (test code = PLTMOR) LARGE (4-7 um) NORMAL A ANISO (test code = ANISO) 2+ NONE A HYPOCHROM (test code = HYPOC) 1+ NONE A MICROCYTIC (test code = MICRO) 2+ NONE A TARGET (test code = TARG) 1+ NONE A OVALOCYTES (test code = OVA) 1+ NONE A URINALYSIS WITH [id number] 12:44:00 Test Item Value Reference Range Interpretation Comments COLOR (test code = COLU) PINK YELLOW A CLARITY (test code = CLA) CLOUDY CLEAR A GLUCOSE UR (test code = UA GLUCOSE) NEGATIVE NEGATIVE BILI UR (test code = BILE) NEGATIVE NEGATIVE KETONES UR (test code = MAXINE) NEGATIVE NEGATIVE SP GRAVITY (test code = SPGR) 1.012 1.005-1.030 PH UR (test code = PH) 7.5 4.5-8.0 PROTEIN UR (test code = PU) 1+ NEGATIVE A UROBIL UR (test code = UROQ) 1.0 EU/dL 0.2-1.0 NITRITE UR (test code = NITRITE) NEGATIVE NEGATIVE BLOOD UR (test code = UA BLOOD) 3+ NEGATIVE A LEUK ES UR (test code = LEUK) 1+ NEGATIVE A WBC UR (test code = UWBC) 3 /HPF 0-5 RBC UR (test code = URBC) 45 /HPF 0-2 H EPITH UR (test code = UEPC) FEW /LPF FEW BACTERIA UR (test code = UBACT) NONE /HPF NONE CAST UR (test code = CAST) /LPF NONE CRYSTAL UR (test code = CRYU) / LPF NONE MUCUS UR (test code = MUC) / HPF NONE AMORPH UR (test code = SUNIL) / HPF NONE TRICH UR (test code = UTRICH) /HPF NONE YEAST UR (test code = UY) /HPF NONE SPERM UR (test code = USPERM) /HPF NONE URINE [id number] 12:33:00 Test Item Value Reference Range Interpretation Comments PREG UR (test code = PGU) NEGATIVE NEGATIVE DIRECT STREP GROUP [id number] 12:24:00 Test Item Value Reference Range Interpretation Comments Culture Observations NO BETA HEMOLYTIC (test code = COB1) STREPTOCOCCUS ISOLATED Direct Exam (test code NEGATIVE FOR STREP A = DE1) ANTIGEN CBC WITH [id number] 13:09:00 Test Item Value Reference Range Interpretation Comments WBC (test code = WBC) 4.1 10\S\3/uL 4.5-11.0 L RBC (test code = RBC) 5.16 10\S\6/uL 4.30-5.70 HGB (test code = HBG) 9.3 g/dL 12.0-15.5 L HCT (test code = HCT) 33.2 % 35.0-44.0 L MCV (test code = MCV) 64.3 fL 81.0-99.0 L MCH (test code = MCH) 18.0 pg 27.0-31.0 L MCHC (test code = 28.0 g/dL 32.0-36.0 L MCHC) RDW (test code = RDW) 19.0 % 11.5-14.5 H PLT (test code = PLT) 242 10\S\3/uL 130-400 MPV (test code = MPV) 10.6 fL 9.4-12.4 NEUTROP # (test code 1.9 10\S\3/uL 1.6-8.0 = NE#) LYMPH # (test code = 1.5 10\S\3/uL 1.1-3.5 LY#) MONOCYTE # (test code 0.5 10\S\3/uL 0.0-1.1 = MO#) EOSINOPH # (test code 0.1 10\S\3/uL 0.0-0.7 = EO#) BASOPHIL # (test code 0.0 10\S\3/uL 0.0-0.3 = BA#) IG # (test code = 0.00 10\S\3/uL 0.00-0.06 IG#) NRBC # (test code = 0.00 10\S\3/uL 0.00-0.01 NRBC#) NEUTROPH % (test code 46.2 % 35.0-73.0 = NE%) LYMPH % (test code = 37.7 % 20.0-55.0 LY%) MONO % (test code = 13.2 % 2.5-10.0 H MO%) EOSINOPH % (test code 2.7 % 0.0-5.0 = EO%) BASOPHIL % (test code 0.2 % 0.0-2.0 = BA%) IG % (test code = 0.0 % 0.0-0.8 IG%) NRBC% (test code = 0.0 % 0.0-0.2 NRBC%) PLT EST (test code = ADEQUATE ADEQUATE PLTEST) PLT MORPH (test code NORMAL (1.5-3 um) NORMAL fe w large plts = PLTMOR) ANISO (test code = 1+ NONE A ANISO) POIK (test code = 1+ NONE A POIK) HYPOCHROM (test code 2+ NONE A = HYPOC) MICROCYTIC (test code 3+ NONE A = MICRO) OVALOCYTES (test code 1+ NONE A = OVA) TEAR DROP (test code 1+ NONE A = TD) AMYLASE AND [id number] 13:06:00 Test Item Value Reference Range Interpretation Comments AMYLASE (test code = 10A) 53 U/L 28-100 LIPASE (test code = 60A) 170 IU/L 73-393 COMPREHENSIVE METABOLIC [id number] 13:06:00 Test Item Value Reference Range Interpretation Comments GLUCOSE (test code = 06D) 77 mg/dL 75-100 SODIUM (test code = 01A) 139 mmol/L 136-145 POTASSIUM (test code = 01B) 3.5 mmol/L 3.6-5.1 L CHLORIDE (test code = 04A) 104 mmol/L 98-107 CO2 (test code = 02A) 23 mmol/L 22-32 ANION GAP (test code = ANG) 15.5 mmol/L BUN (test code = 05D) 8 mg/dL 7-18 CREATININE (test code = 03E) 0.8 mg/dL 0.4-1.1 BUN/CREA R (test code = BCR) 11 12-20 L CALCIUM (test code = 09D) 9.0 mg/dL 8.3-9.5 BILI TOTAL (test code = 11A) 0.4 mg/dL 0.2-1.0 PROTEIN (test code = 07D) 7.4 g/dL 6.4-8.2 ALBUMIN (test code = 08D) 4.0 g/dL 3.5-4.8 GLOBULIN (test code = GLB) 3.4 g/dL 1.5-3.8 ALB/GLOB (test code = AGRR) 1.2 1.0-2.6 ALK PHOS (test code = 35A) 54 IU/L 42-121 AST (test code = 30A) 14 IU/L <=42 ALT (test code = 31A) 14 IU/L <=78 URINALYSIS WITH [id number] 12:58:00 Test Item Value Reference Range Interpretation Comments COLOR (test code = COLU) DK YELLOW YELLOW A CLARITY (test code = CLA) CLOUDY CLEAR A GLUCOSE UR (test code = UA NEGATIVE NEGATIVE GLUCOSE) BILI UR (test code = BILE) 1+ NEGATIVE A KETONES UR (test code = MAXINE) 1+ NEGATIVE A SP GRAVITY (test code = SPGR) 1.027 1.005-1.030 PH UR (test code = PH) 5.5 4.5-8.0 PROTEIN UR (test code = PU) 1+ NEGATIVE A UROBIL UR (test code = UROQ) 0.2 EU/dL 0.2-1.0 NITRITE UR (test code = POSITIVE NEGATIVE A NITRITE) BLOOD UR (test code = UA NEGATIVE NEGATIVE BLOOD) LEUK ES UR (test code = LEUK) 1+ NEGATIVE A WBC UR (test code = UWBC) 3 /HPF 0-5 RBC UR (test code = URBC) 0 /HPF 0-2 EPITH UR (test code = UEPC) MANY /LPF FEW A BACTERIA UR (test code = MODERATE /HPF NONE A UBACT) CAST UR (test code = CAST) /LPF NONE CRYSTAL UR (test code = CRYU) / LPF NONE MUCUS UR (test code = MUC) MODERATE / HPF NONE A AMORPH UR (test code = SUNIL) / HPF NONE TRICH UR (test code = UTRICH) /HPF NONE YEAST UR (test code = UY) /HPF NONE SPERM UR (test code = USPERM) /HPF NONE SERUM [id number] 12:57:00 Test Item Value Reference Range Interpretation Comments PREG SRM (test code = PGS) NEGATIVE NEGATIVE XR CHEST 1 VIEW [id number] 12:56:29LOCATION: [id number]: 25-year-old female who presents with fever, myalgia, and cough.COMMENT:A frontal chest radiograph was obtained at the bedside at 12:24 p.m. andcompared to a prior study of 12/27/14.The lung apices are obscured by the patient's mandible.The visualized lungs are clear. The cardiac silhouette, isaura, and mediastinumare unremarkable. The skeleton and soft tissues are unremarkable.IMPR ESSION:Unremarkable radiographic examination of this patient's chest.DIRECT INFLUENZA A AND B [id number] 12:55:00 Test Item Value Reference Range Interpretation Comments Direct Exam (test PRESUMPTIVE NEGATIVE FOR code = DE1) THE PRESENCE OF INFLUENZA ANTIGEN
[2022-02-09] MEDS ORDERED: KETOROLAC 30 MG/ML INJ ONE (09:17)
[2022-02-09] MEDS ORDERED: CYCLOBENZAPRINE 10 MG TAB ONE (09:17)
--- NOTE | 2022-02-09 09:30 | ER ---
Nurse's Notes [facility] Name: Genna Miller Age: 31 yrs Sex: Female : 1990 Arrival Date: 02/09/2022 Time: 07:57 Bed 12 Private MD: Diagnosis: Sprain of ligaments of lumbar spine Presentation: 02/09 08:36 Chief complaint: Patient states: Low back pain x 3 days post moving stuff. Coronavirus jl7 screen: At this time, the client does not indicate any symptoms associated with coronavirus-19. Ebola Screen: No symptoms or risks identified at this time. Initial Sepsis Screen: Does the patient meet any 2 criteria? No. Patient's initial sepsis screen is negative. Does the patient have a suspected source of infection? No. Patient's initial sepsis screen is negative. Risk Assessment: Do you want to hurt yourself or someone else? Patient reports no desire to harm self or others. Onset of symptoms was March 09, 2021. 08:36 Method Of Arrival: Ambulatory [facility] 08:36 Acuity: BERNABE 4 jl7 Triage Assessment: 08:37 General: Appears in no apparent distress. uncomfortable, Behavior is calm, cooperative, jl7 appropriate for age. Pain: Complains of pain in low back area Pain currently is 8 out of 10 on a pain scale. Musculoskeletal: Swelling absent. 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 - Social history:: Smoking status: Patient reports the use of cigarette tobacco products. Screenin:49 [facility] ED Fall Risk Assessment (Adult) History of falling in the last 3 months, vg1 including since admission No falls in past 3 months (0 pts) Confusion or Disorientation No (0 pts) Intoxicated or Sedated No (0 pts) Impaired Gait No (0 pts) Mobility Assist Device Used No (0 pt) Altered Elimination No (0 pt) Score/Fall Risk Level 0 - 2 = Low Risk Oriented to surroundings, Maintained a safe environment, Educated pt \T\ family on fall prevention, incl call for assistance when getting out of bed, Assessed \T\ reinforced patient's understanding of fall precautions. Abuse screen: Denies threats or abuse. Nutritional screening: No deficits noted. Tuberculosis screening: No symptoms or risk factors identified. Assessment: 09:49 General: Appears in no apparent distress. comfortable, Behavior is calm, cooperative. vg1 Pain: Complains of pain in back and low back area Pain currently is 8 out of 10 on a pain scale. Neuro: Level of Consciousness is awake, alert, obeys commands, Oriented to person, place, time, situation. Respiratory: Airway is patent Respiratory effort is even, unlabored. Derm: Skin is pink, warm \T\ dry. Musculoskeletal: Circulation, motion, and sensation intact. Vital Signs: 08:36 BP 115 / 81; Pulse 88; Resp 17; Temp 98.1; Pulse Ox 98% ; Weight 81.65 kg; Height 5 ft. jl7 6 in. (167.64 cm); Pain 8/10; 08:36 Body Mass Index 29.05 (81.65 kg, 167.64 cm) jl7 ED Course: 07:57 Patient arrived in ED. mr 08:37 Triage completed. jl7 08:37 Arm band placed on right wrist. Patient placed in waiting room, Patient notified of jl7 wait time. 08:44 Erica Villar FNP [facility] 08:44 Hammad Basurto MD is Attending Physician. jh7 09:49 Patient has correct armband on for positive identification. Bed in low position. Call vg1 light in reach. 09:49 No provider procedures requiring assistance completed. Patient did not have IV access vg1 during this emergency room visit. Administered Medications: 09:43 Drug: Ketorolac 60 mg Route: IM; Site: right gluteus; vg1 09:51 Follow up: Response: Medication administered at discharge. vg1 09:46 Drug: Flexeril (cyclobenzaprine) 10 mg Route: PO; vg1 09:50 Follow up: Response: Medication administered at discharge. vg1 Medication: 09:49 VIS not applicable for this client. vg1 Outcome: 09:29 Discharge ordered by . jh7 09:49 Discharged to home ambulatory. vg1 09:49 Condition: good 09:49 Discharge instructions given to patient, Instructed on discharge instructions, follow up and referral plans. medication usage, Demonstrated understanding of instructions, follow-up care, medications, Prescriptions given X 2. 09:50 Patient left the ED. vg1 Signatures: Alea Lopez Jahala, RN RN jl7 Chyna Remy RN RN vg1 Erica Villar, ROSTER CLERK ROSTER CLERK jh7
--- NOTE | 2022-02-09 09:30 | EDPHYS ---
Physician Documentation [facility] Name: Genna Miller Age: 31 yrs Sex: Female : 1990 Arrival Date: 02/09/2022 Time: 07:57 Bed 12 Private MD: MELISSA Physician Hammad Basurto HPI: 02/09 08:20 This 31 yrs old Black Female presents to ER via Ambulatory with complaints of Back Pain.jh7 08:20 The patient presents with pain that is acute, with no known mechanism of injury. The jh7 symptoms are located in the left low back. Onset: The symptoms/episode began/occurred yesterday. The pain does not radiate. Associated signs and symptoms: The patient has no apparent associated signs or symptoms. The problem was sustained when lifting boxes. Report states she was moving boxes on Tuesday and the left side of her back started to feel sore yesterday. Denies any other injury. No PMH.. 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 - Social history:: Smoking status: Patient reports the use of cigarette tobacco products. ROS: 08:20 Constitutional: Negative for fever, chills, and weight loss, Eyes: Negative for injury, jh7 pain, redness, and discharge, Neck: Negative for injury, pain, and swelling, Cardiovascular: Negative for chest pain, palpitations, and edema, Respiratory: Negative for shortness of breath, cough, wheezing, and pleuritic chest pain, Abdomen/GI: Negative for abdominal pain, nausea, vomiting, diarrhea, and constipation, MS/Extremity: Negative for injury and deformity, Skin: Negative for injury, rash, and discoloration, Neuro: Negative for headache, weakness, numbness, tingling, and seizure. 08:20 Back: Positive for pain with movement, Negative for decreased range of motion, radiated pain. 08:20 All other systems are negative. Exam: 08:20 Constitutional: This is a well developed, well nourished patient who is awake, alert, jh7 and in no acute distress. Head/Face: Normocephalic, atraumatic. Neck: Trachea midline, no thyromegaly or masses palpated, and no cervical lymphadenopathy. Supple, full range of motion without nuchal rigidity, or vertebral point tenderness. No Meningismus. Cardiovascular: Regular rate and rhythm with a normal S1 and S2. No gallops, murmurs, or rubs. Normal PMI, no JVD. No pulse deficits. Respiratory: Lungs have equal breath sounds bilaterally, clear to auscultation and percussion. No rales, rhonchi or wheezes noted. No increased work of breathing, no retractions or nasal flaring. Skin: Warm, dry with normal turgor. Normal color with no rashes, no lesions, and no evidence of cellulitis. MS/ Extremity: Pulses equal, no cyanosis. Neurovascular intact. Full, normal range of motion. Neuro: Awake and alert, GCS 15, oriented to person, place, time, and situation. Motor strength 5/5 in all extremities. Sensory grossly intact. Normal gait. 08:20 Back: pain, that is very mild, of the left low back, ROM is normal, CVA tenderness, is absent, muscle spasm, is not present. Vital Signs: 08:36 BP 115 / 81; Pulse 88; Resp 17; Temp 98.1; Pulse Ox 98% ; Weight 81.65 kg; Height 5 ft. jl7 6 in. (167.64 cm); Pain 8/10; 08:36 Body Mass Index 29.05 (81.65 kg, 167.64 cm) [facility]DM: 08:44 Patient medically screened. [facility] 09:50 Differential diagnosis: arthritis, Lumbar strain, herniated disc, lumbar sprain. Data [facility] reviewed: vital signs, nurses notes. Data interpreted: Pulse oximetry: is 98 %. Interpretation: normal. Counseling: I had a detailed discussion with the patient and/or guardian regarding: the historical points, exam findings, and any diagnostic results supporting the discharge/admit diagnosis, to return to the emergency department if symptoms worsen or persist or if there are any questions or concerns that arise at home. Response to treatment: the patient's symptoms have markedly improved after treatment. ED course: The patient remained stable throughout the ER visit. Imaging was considered but not performed due to the patient not presenting with any neurological symptoms no true trauma, no tenderness on the spine, or tenderness to palpation at the area of injury. Gave Toradol and Flexeril in the ER and will prescribe steroids and muscle relaxers to manage pain at home. Discussed back exercises and signs and symptoms of when to return to the ER.. Administered Medications: 09:43 Drug: Ketorolac 60 mg Route: IM; Site: right gluteus; vg1 09:51 Follow up: Response: Medication administered at discharge. vg1 09:46 Drug: Flexeril (cyclobenzaprine) 10 mg Route: PO; vg1 09:50 Follow up: Response: Medication administered at discharge. vg1 Disposition: 15:17 Co-signature as Attending Physician, Hammad Basurto MD I agree with the assessment and rt plan of care. Disposition Summary: 02/09/22 09:29 Discharge Ordered Location: Home [facility] Problem: new [facility] Symptoms: have improved [facility] Condition: Stable [facility] Diagnosis - Sprain of ligaments of lumbar spine [facility] Followup: [facility] - With: Private Physician - When: 2 - 3 days - Reason: Recheck today's complaints Discharge Instructions: - Discharge Summary Sheet 7 - Lumbar Sprain 7 - Lumbar Strain [facility] Forms: - Work release form vg1 - Medication Reconciliation Form 7 - Thank You Letter [facility] Prescriptions: - Zanaflex 4 mg Oral Tablet - take 1 tablet by ORAL route every 8 hours As needed; 20 tablet; Refills: 0, [facility] Product Selection Permitted - Medrol (Stefano) 4 mg Oral Tablets, Dose Pack - take 1 tablet by ORAL route as directed - follow package instructions; 1 [facility] packet; Refills: 0, Product Selection Permitted Signatures: Preethi Delaney RN RN jl7 Chyna Remy RN RN vg1 Erica Villar, NURSE INFORMATICS EDUCATOR NURSE INFORMATICS EDUCATOR 7 Hammad Basurto MD MD rt
[2022-02-09 10:10] VITALS: BP 115/81; TEMP 98.1; O2SAT 98
== END 2022-02-09 09:50 | disposition home or self-care (01) ==
LOC: ER 07:54
DX: S33.5XXA Sprain of ligaments of lumbar spine, initial encounter (principal)
CPT/HCPCS: 96372; 99283